=== PATIENT | female | born 1965 | race Caucasian/White ===

== ENCOUNTER 2019-03-13 00:47 | Emergency (ER) | payer OTHER ==
[2019-03-13 00:56] VITALS: BP 122/96
[2019-03-13] MEDS ORDERED: predniSONE TAB* 50 MG PO ONE (01:50)
[2019-03-13] MEDS ORDERED: Clindamycin CAP* 150 MG PO ONE (01:50)
[2019-03-13] MEDS ORDERED: predniSONE TAB* 10 MG ONE (01:55)
[2019-03-13] MEDS ORDERED: hydrOXYzine HCL TAB* 25 MG PO ONE (01:58)
--- NOTE | 2019-03-13 02:39 | ED ---
Bite Injury/Animal - HPI Summary HPI Summary: This pt is a 53 Y/O female presenting to [facility] with a CC of a bite to her forehead from 03/11/19. She stated that her face started swelling up and has begun to become painful today. She stated that she has had pus come out of her ear yesterday. She denies any fever, CP, abdominal pain, N/V/D, headaches, and new rashes. She states that she has no alleviating factors. - History of Current Complaint Chief Complaint: EDFacialInjury Stated Complaint: RASH PER PT Time Seen by Provider: 03/13/19 01:39 Hx Obtained From: Patient Hx Last Menstrual Period: N/A Onset of Injury: Happened days ago - 2, Still Present Type of Bite: Wild Animal Has Animal Been Immunized?: N/A Severity Initially: Mild Severity Currently: None Pain Intensity: 0 Pain Scale Used: 0-10 Numeric Character: Puncture Aggravating Factor(s): Nothing Alleviating Factor(s): Nothing - pt stated that she had pus coming out of her ear Associated Signs And Symptoms: Positive: Negative - fever, CP, abdominal pain, N /V/D, headaches, and new rashes. She, Drainage - p, Swelling. Negative: Fever Animal Available for Observation: No - Allergies/Home Medications Allergies/Adverse Reactions: Allergies Allergy/AdvReac Type Severity Reaction Status Date / Time ibuprofen Allergy Rash Verified 03/13/19 01:03 meperidine Allergy Unknown Verified 03/13/19 01:03 Reaction Details Sulfa (Sulfonamide Allergy Rash And Verified 03/13/19 01:03 Antibiotics) Itching PMH/Surg Hx/FS Hx/Imm Hx Previously Healthy: Yes Endocrine/Hematology History: Denies: Hx Bone Marrow Disease, Hx Diabetes, Hx Sickle Cell Disease, Hx Thyroid Disease, Hx Anemia Cardiovascular History: Denies: Hx Angina, Hx Hypertension, Hx Pacemaker/ICD, Hx Rheumatic Fever, Other Cardiovascular Problems/Disorders Respiratory History: Reports: Other Respiratory Problems/Disorders Denies: Hx Asthma, Hx Pulmonary Embolism, Hx Sleep Apnea GI History: Denies: Hx Cirrhosis, Hx Crohn's Disease, Hx Irritable Bowel History: Denies: Hx Kidney Infection Musculoskeletal History: Reports: Hx Arthritis - HANDS, SPINE, KNEES, Hx Tendonitis - ELBOWS Sensory History: Denies: Hx Cataracts, Hx Contacts or Glasses, Hx Hearing Aid Opthamlomology History: Denies: Hx Cataracts, Hx Contacts or Glasses Neurological History: Denies: Hx Headaches, Hx Migraine, Hx Seizures Psychiatric History: Denies: Hx Anxiety, Hx Depression - Surgical History Surgery Procedure, Year, and Place: APPENDECTOMY OVER 10 YEARS AGO. T/A A CHILD. TUBAL LIGATION- 1988, [place]. RIGHT EAR RECONSTRUCTION- ABOUT 1YEAR AGO, AT "ENT OFFICE IN [place]" Hx Anesthesia Reactions: No - Immunization History Date of Tetanus Vaccine: unk Date of Influenza Vaccine: none Infectious Disease History: No Infectious Disease History: Denies: Hx Hepatitis, Traveled Outside the [place] in Last 30 Days - Social History Alcohol Use: Rare Alcohol Amount: 1 DRINK PER MONTH, DEPENDS ON THE OCCASION Substance Use Type: Reports: None Substance Use Comment - Amount & Last Used: DRUG HISTORY MANY YEARS AGO Hx Tobacco Use: Yes Smoking Status (MU): Heavy Every Day Tobacco Smoker Type: Cigarettes Amount Used/How Often: 1PPD, "ALL MY LIFE" Length of Time of Smoking/Using Tobacco: 30 YEARS Have You Smoked in the Last Year: Yes Review of Systems Negative: Fever ENT: Other - POSITIVE: pus draining from ears, swelling face Negative: Chest Pain Negative: Abdominal Pain, Vomiting, Diarrhea, Nausea Negative: Rash Negative: Headache All Other Systems Reviewed And Are Negative: Yes Physical Exam - Summary Physical Exam Summary: VITAL SIGNS: Reviewed. GENERAL: Patient is a well-developed and nourished female who is lying comfortable in the stretcher. Patient is not in any acute respiratory distress. HEAD AND FACE: No signs of trauma. No ecchymosis, hematomas or skull depressions. No sinus tenderness. EYES: PERRLA, EOMI x 2, No injected conjunctiva, no nystagmus. EARS: Hearing grossly intact. Ear canals and tympanic membranes are within normal limits. MOUTH: Oropharynx within normal limits. NECK: Supple, trachea is midline, no adenopathy, no JVD, no carotid bruit, no c- spine tenderness, neck with full ROM CHEST: Symmetric, no tenderness at palpation LUNGS: Clear to auscultation bilaterally. No wheezing or crackles. CVS: Regular rate and rhythm, S1 and S2 present, no murmurs or gallops appreciated. ABDOMEN: Soft, non-tender. No signs of distention. No rebound no guarding, and no masses palpated. Bowel sounds are normal. EXTREMITIES: FROM in all major joints, no edema, no cyanosis or clubbing. NEURO: Alert and oriented x 3. No acute neurological deficits. Speech is normal and follows commands. SKIN: Dry and warm, Mild swollen focal area over the R forehead. Triage Information Reviewed: Yes Vital Signs On Initial Exam: Initial Vitals Temp Pulse Resp BP Pulse Ox 98.9 F 100 16 122/96 97 03/13/19 00:50 03/13/19 00:50 03/13/19 00:50 03/13/19 00:50 03/13/19 00:50 Vital Signs Reviewed: Yes Diagnostics - Vital Signs Vital Signs Temp Pulse Resp BP Pulse Ox 03/13/19 00:50 98.9 F 100 16 122/96 97 - Laboratory Lab Statement: Any lab studies that have been ordered have been reviewed, and results considered in the medical decision making process. Bite Injury Course/Dx - Course Course Of Treatment: This pt is a 53 Y/O female presenting to [facility] with a CC of a bite to her forehead from 03/11/19. She stated that her face started swelling up and has begun to become painful today. She stated that she has had pus come out of her ear yesterday. Her PE found that she had Mild swollen focal area over the R forehead. Pt stated that she felt better after the adminstration of the following medications: Atarax Tab, Cleocin Cap, Deltasone Tab. She will be discharged with a Dx of an allergic reaction to a bug bite and cellulitis. - Diagnoses Provider Diagnosis: Allergic reaction, Cellulitis Discharge - Sign-Out/Discharge Documenting (check all that apply): Patient Departure - discharge Patient Received Moderate/Deep Sedation with Procedure: No - Discharge Plan Condition: Stable Disposition: HOME Prescriptions: Clindamycin Cap(NF) [Clindamycin Cap 300 mg Cap(NF)] 300 mg PO Q6H #30 cap hydrOXYzine HCL TAB* [Atarax 25 MG TAB*] 25 mg PO QID PRN #20 tab PRN Reason: Itching predniSONE TAB* [Deltasone TAB*] 50 mg PO DAILY #3 tab Patient Education Materials: Allergies (ED), Cellulitis (ED) Referrals: [facility] [Outside] - 2 Days Additional Instructions: Please follow up with [facility] in 2-3 days and return to the emergency department for any new or worsening symptoms. - Attestation Statements Document Initiated by Scribe: Yes Documenting Scribe: Lencho Mendoza Provider For Whom Scribe is Documenting (Include Credential): Rose Coronel MD Scribe Attestation: Lencho Bassett, scribed for Rose Coronel MD on 03/13/19 at 0243. Status of Scribe Document: Ready
== END 2019-03-13 02:50 | disposition home or self-care (01) ==
LOC: ED 00:47
DX: T63.481A Toxic effect of venom of other arthropod, accidental (unintentional), initial encounter (principal); Y92.9 Unspecified place or not applicable; L03.211 Cellulitis of face; Z88.6 Allergy status to analgesic agent; Z88.5 Allergy status to narcotic agent; Z88.2 Allergy status to sulfonamides; F17.210 Nicotine dependence, cigarettes, uncomplicated
CPT/HCPCS: 99283; A9270-GY; J7512

== ENCOUNTER 2019-07-30 10:36 | Emergency (ER) | payer OTHER ==
[2019-07-30 10:45] VITALS: BP 147/77
--- NOTE | 2019-07-30 10:53 | UC ---
Skin Complaint HPI - HPI Summary HPI Summary: 53 yo yasmeen fitzgerald, comes today with multiple concerns: --dry fissured skins on her fingers, which is a chronic problem every winter --fears that she has "microscopic" bugs --had a fall about a month ago went down 3 steps, hitting her buttocks, mid back and neck, with a "numb spot" in the middle of the right buttock for the past weeks. She has no difficuty moving, no loss of bowel or bladder function. --has callus formation on the left first toes which is related to early bunion formation. - History of Current Complaint Chief Complaint: UCSkin Time Seen by Provider: 07/30/19 10:44 Stated Complaint: INJURY TO FINGER Hx Obtained From: Patient Hx Last Menstrual Period: N/A Onset/Duration: Gradual Onset, Lasting Weeks Timing: Constant Pain Intensity: 8 Aggravating Factor(s): Touch Alleviating Factor(s): Nothing Associated Signs & Symptoms: Positive: Negative - Allergy/Home Medications Allergies/Adverse Reactions: Allergies Allergy/AdvReac Type Severity Reaction Status Date / Time ibuprofen Allergy Rash Verified 07/30/19 10:45 meperidine Allergy Unknown Verified 07/30/19 10:45 Reaction Details Sulfa (Sulfonamide Allergy Rash And Verified 07/30/19 10:45 Antibiotics) Itching PMH/Surg Hx/FS Hx/Imm Hx Previously Healthy: Yes - low weigt, heavy smoker - Surgical History Surgical History: Yes Surgery Procedure, Year, and Place: APPENDECTOMY OVER 10 YEARS AGO. T/A A CHILD. TUBAL LIGATION- 1988, [place]. RIGHT EAR RECONSTRUCTION- ABOUT 1YEAR AGO, AT "ENT OFFICE IN [place]" - Family History Known Family History: Positive: Other - father of cancer, unknown primary; mother of stroke - Social History Occupation: Employed Full-time Lives: With Family Alcohol Use: Rare Alcohol Amount: 1 DRINK PER MONTH, DEPENDS ON THE OCCASION Substance Use Type: None Substance Use Comment - Amount & Last Used: DRUG HISTORY MANY YEARS AGO Smoking Status (MU): Heavy Every Day Tobacco Smoker Type: Cigarettes Amount Used/How Often: 1PPD, "ALL MY LIFE" Length of Time of Smoking/Using Tobacco: 30 YEARS Have You Smoked in the Last Year: Yes Household Exposure Type: Cigarettes Review of Systems All Other Systems Reviewed And Are Negative: Yes Constitutional: Positive: Negative Skin: Positive: Other - dry fissured skin on fingers Eyes: Positive: Negative ENT: Positive: Negative Respiratory: Positive: Negative Cardiovascular: Positive: Negative Gastrointestinal: Positive: Negative Genitourinary: Positive: Negative Motor: Positive: Negative Neurovascular: Positive: Negative Musculoskeletal: Positive: Other: - pain in low back and sacral area. Neurological: Positive: Paresthesia Psychological: Positive: Anxious Is Patient Immunocompromised?: No Physical Exam Triage Information Reviewed: Yes Appearance: No Pain Distress, Thin - Thin woman, anxious about potential bug bites. Vital Signs: Initial Vital Signs Temp 98 F 07/30/19 10:42 Pulse 91 07/30/19 10:42 Resp 17 07/30/19 10:42 BP 147/77 07/30/19 10:42 Pulse Ox 100 07/30/19 10:42 ENT: Positive: Normal ENT inspection, Pharynx normal, TMs normal, Other - right ear canal with dry flakey skin external canal. Dental Exam: Other - edentulous, removed upper denture; no mucosal lesions. Neck: Positive: Supple, Nontender, No Lymphadenopathy Respiratory: Positive: Lungs clear, Normal breath sounds Cardiovascular: Positive: RRR, No Murmur Abdomen Description: Positive: Nontender, No Organomegaly, Soft Musculoskeletal Exam: Other - Diffuse TTP in lumbar paraspinals and over gluteal areas. Musculoskeletal: Positive: ROM Intact - at lumbar spine. Able to heel and toe walk., No Edema, Other: - SLR limited by tight hamstrings. Bunion formation left foot. Neurological: Positive: Alert, Muscle Tone Normal, Other: - DTR's normal, normal resisted strength in LE Skin Exam: Other - very dry fissured skin tips of fingers without erythema or drainage. Skin: Positive: Other - has some crusted areas left anterior thigh Course/Dx - Course Course Of Treatment: Discussed need for increased lubrication of the fingers and role of steroid to help to heal this. Disussed that there is no evidence of body parasites. She does not have evidence of lice or scabies (skin checked) - Differential Diagnoses - Skin Complaint Differential Diagnoses: Eczema - Diagnoses Provider Diagnosis: Eczema of both hands, Back ache Discharge ED - Sign-Out/Discharge Documenting (check all that apply): Patient Departure All imaging exams completed and their final reports reviewed: No Studies - Discharge Plan Condition: Stable Disposition: HOME Prescriptions: Triamcinolone 0.5% CREAM(NF) [Triamcinolone 0.5% CREAM*] 1 applic TOPICAL BID PRN #60 gm PRN Reason: Dry Skin Patient Education Materials: Dyshidrotic Eczema (ED), Back Pain (ED), Lower Back Exercises (ED) Referrals: No Primary Care Phys,NOPCP [Primary Care Provider] - Additional Instructions: There is no evidence of body parasites or infection. You have very dry skin which leads to the itching. It is important that you stop picking at your skin. You have a steroid cream to use on your hands, but it is also important to keep moisturizing them. Good options include Cetaphil, Neutrogena, or a line of prodcuts called Psorzema. Follow up with your primary care doctor if you have a continue numb spot on the right buttock. You do not have findings that suggest a fracture or disk herniation. If the bunion becomes more painful, follow up with your primary. You have a referral to our Physician service if you would like to find a primary doctor closer to where you live. Your blood pressure ie elevated today to 147/77. Please have a re-check of your blood pressure within a month. - Billing Disposition and Condition Condition: STABLE Disposition: Home
== END 2019-07-30 11:56 | disposition home or self-care (01) ==
LOC: UCEAST 10:36
DX: L30.9 Dermatitis, unspecified (principal); M54.9 Dorsalgia, unspecified; Z88.8 Allergy status to other drugs, medicaments and biological substances; F17.210 Nicotine dependence, cigarettes, uncomplicated; Z88.5 Allergy status to narcotic agent; Z88.2 Allergy status to sulfonamides
CPT/HCPCS: 99212; G0463

== ENCOUNTER 2019-08-26 19:09 | Inpatient (IN) | payer OTHER ==
[2019-08-26] MEDS ORDERED: ceFAZolin 1 GM ADVAN(*) 1 GM in NS 0.9% 50 ML* 50 ML IVPB ONE (20:58)
[2019-08-26] MEDS ORDERED: Vancomycin(*) 1,000 MG in NS 0.9% 250 ML* 250 ML IV ONE (20:59)
[2019-08-26] MEDS ORDERED: Morphine 4 MG/ML VIAL (1 ml) 4 MG/ML VIAL IV ONE (21:01)
--- NOTE | 2019-08-26 21:02 | ED ---
Upper Extremity Pain - HPI Summary HPI Summary: The patient is a 53 y/o female presenting to [facility] accompanied by with a chief complaint of worsening swelling, pain, and warmth to the dorsal right hand extending into the fingers, wrist, and forearm over the last 8 hours. She reports that she is unsure how the hand was injured, but her states she sleep walks and may have fallen on it. She endorses a fever without any treatment [employer]. Pain is currently rated 10/10 in severity. Movement aggravates the pain as there is decreased ROM in the hand secondary to pain. PMHx: arthritis. Current smoker, rare EtOH, history of substance use without current use. Medications reviewed. Allergies noted. - History of Current Complaint Chief Complaint: EDExtremityUpper Stated Complaint: SWOLLEN R HAND AND FEVER PER PT Time Seen by Provider: 08/26/19 20:54 Hx Obtained From: Patient Hx Last Menstrual Period: N/A Mechanism Of Injury: Unknown Onset/Duration: Started Hours Ago, Still Present Timing: Constant Severity Initially: Mild Severity Currently: Severe Pain Location: Forearm - right, Wrist - right, Hand - right, Finger - right Character: Throbbing Aggravating Factor(s): Movement Alleviating Factor(s): Nothing Associated Signs & Symptoms: Positive: Swelling, Redness, Fever, Other - warmth to the right hand - Allergies/Home Medications Allergies/Adverse Reactions: Allergies Allergy/AdvReac Type Severity Reaction Status Date / Time ibuprofen Allergy Rash Verified 08/26/19 19:13 meperidine Allergy Unknown Verified 08/26/19 19:13 Reaction Details Sulfa (Sulfonamide Allergy Rash And Verified 08/26/19 19:13 Antibiotics) Itching PMH/Surg Hx/FS Hx/Imm Hx Endocrine/Hematology History: Denies: Hx Bone Marrow Disease, Hx Diabetes, Hx Sickle Cell Disease, Hx Thyroid Disease, Hx Anemia Cardiovascular History: Denies: Hx Angina, Hx Hypertension, Hx Pacemaker/ICD, Hx Rheumatic Fever, Other Cardiovascular Problems/Disorders Respiratory History: Reports: Other Respiratory Problems/Disorders Denies: Hx Asthma, Hx Pulmonary Embolism, Hx Sleep Apnea GI History: Denies: Hx Cirrhosis, Hx Crohn's Disease, Hx Irritable Bowel History: Denies: Hx Kidney Infection Musculoskeletal History: Reports: Hx Arthritis - HANDS, SPINE, KNEES, Hx Tendonitis - ELBOWS Sensory History: Denies: Hx Cataracts, Hx Contacts or Glasses, Hx Hearing Aid Opthamlomology History: Denies: Hx Cataracts, Hx Contacts or Glasses Neurological History: Denies: Hx Headaches, Hx Migraine, Hx Seizures Psychiatric History: Denies: Hx Anxiety, Hx Depression - Surgical History Surgical History: Yes Surgery Procedure, Year, and Place: APPENDECTOMY OVER 10 YEARS AGO. T/A A CHILD. TUBAL LIGATION- 1988, [place]. RIGHT EAR RECONSTRUCTION- ABOUT 1YEAR AGO, AT "ENT OFFICE IN [place]" Hx Anesthesia Reactions: No - Immunization History Date of Tetanus Vaccine: unk Date of Influenza Vaccine: none Infectious Disease History: Yes Infectious Disease History: Denies: Hx Hepatitis, Traveled Outside the in Last 30 Days - Family History Known Family History: Positive: Other - father of cancer, unknown primary; mother of stroke - Social History Alcohol Use: Rare Alcohol Amount: 1 DRINK PER MONTH, DEPENDS ON THE OCCASION Hx Substance Use: Yes Substance Use Type: Reports: None Substance Use Comment - Amount & Last Used: DRUG HISTORY MANY YEARS AGO Hx Tobacco Use: Yes Smoking Status (MU): Heavy Every Day Tobacco Smoker Type: Cigarettes Amount Used/How Often: 1PPD, "ALL MY LIFE" Length of Time of Smoking/Using Tobacco: 30 YEARS Have You Smoked in the Last Year: Yes Review of Systems Positive: Fever Positive: Decreased ROM - right hand secondary to pain, Other - pain in right hand and wrist Positive: Other - warmth, erythema, and swelling of right hand, fingers, and wrist into forearm All Other Systems Reviewed And Are Negative: Yes Physical Exam - Summary Physical Exam Summary: Appearance: Nontoxic-appearing female, Well-nourished, lying in bed comfortable , noted to be febrile Skin: Warm, dry, no obvious rash Eyes: sclera anicteric, no conjunctival pallor ENT: mucous membranes moist Neck: deferred Respiratory: No signs of respiratory distress Cardiovascular: Appears well perfused, pulses are nml Abdomen: deferred Musculoskeletal: Extensive swelling, redness, and warmth to the dorsum of the right hand extending into the fingers across the wrist and into the forearm, No obvious fluctuance or drainage, No discrete wound, Patient unable to flex fingers due to pain Neurological: Awake and alert, mentation is normal, speech is fluent and appropriate Psychiatric: affect is normal, does not appear anxious or depressed Triage Information Reviewed: Yes Vital Signs On Initial Exam: Initial Vitals Temp Pulse Resp BP Pulse Ox 101.2 F 92 15 167/92 98 08/26/19 19:11 08/26/19 19:11 08/26/19 19:11 08/26/19 19:11 08/26/19 19:11 Vital Signs Reviewed: Yes Procedures - Sedation Patient Received Moderate/Deep Sedation with Procedure: No Diagnostics - Vital Signs Vital Signs Temp Pulse Resp BP Pulse Ox 08/26/19 19:11 101.2 F 92 15 167/92 98 - Laboratory Result Diagrams: 08/26/19 21:45 08/26/19 21:45 Lab Statement: Any lab studies that have been ordered have been reviewed, and results considered in the medical decision making process. - Radiology R Hand XR Radiology Interpretation Completed By: ED Physician Summary of Radiographic Findings: Soft tissue swelling of the dorsum of the hand. No acute process with no subcutaneous air. ED physician has reviewed and interpreted this report. Pending official read. Course/Dx - Course Course Of Treatment: 53 y/o female presenting with pain, swelling, warmth, and erythema to the right hand extending into the fingers, wrist, and forearm onset approximately eight hours ago with unknown mechanism of injury. Physical exam reveals nontoxic appearing female who is noted to be febrile with extensive swelling, redness, and warmth to the dorsum of the right hand extending into the fingers across the wrist and into the forearm without any obvious fluctuance , drainage, or discrete wound, but with inability to flex fingers secondary to pain. Blood work obtained to reveal WBCs of 12.7, absolute neutrophils of 10.1, absolute monocytes of 1.0, sodium of 132, potassium of 3.2, and chloride of 98. Dr. Zapien from orthopedics agrees with IV antibiotics and admission as he will see her in the morning. In the ED course, the patient was administered fluids, Morphine for pain, and Cefazolin and Vancomycin for infection. Right hand XR, per my interpretation, reveals soft tissue swelling of the dorsum of the hand, no acute process with no subcutaneous air. Dr. Mack from hospitalist services accepts the patient for admission. Patient understands and agrees with this plan. - Diagnoses Provider Diagnoses: Cellulitis of right hand - Physician Notifications Discussed Care of Patient With: Tavo Zapien - orthopedics Time Discussed With Above Provider: 21:30 Instructed by Provider To: Other - I discussed the patients case with Dr. Zapien, who agrees with IV antibiotics and admission as he will see her in the morning. [2330] I discussed the patients case with Dr. Mack, who accepts the patient for admission. Discharge ED - Sign-Out/Discharge Documenting (check all that apply): Patient Departure - Patient accepted for admission by Dr. Mack. - Discharge Plan Condition: Stable Disposition: ADMITTED TO [facility] - Billing Disposition and Condition Condition: STABLE Disposition: Admitted to [facility] - Attestation Statements Document Initiated by Aidan: Yes Documenting Scribe: Lavonne Wakefield Provider For Whom Aidan is Documenting (Include Credential): Dr. Hernan Hernandez MD Scribe Attestation: ILavonne scribed for Dr. Hernan Hernandez MD on 08/27/19 at 0142. Scribe Documentation Reviewed: Yes Provider Attestation: The documentation as recorded by the Lavonne mederos accurately reflects the service I personally performed and the decisions made by me, Dr. Hernan Hernandez MD Status of Scribe Document: Viewed
[2019-08-26] MEDS: NS 0.9% 1000 ML** 2,000 ML IV ONE ×3 (21:51→22:36)
[2019-08-26 22:02] LABS: ABS Lymphocytes 1.5 10^3/ul (1.0-4.8); ABS Neutrophils 10.1 10^3/ul (1.5-7.7); Eosinophil % 0.1 %; Hematocrit 36 % (35-47); Hemoglobin 12.2 g/dL (12.0-16.0); Lymphocyte % 11.6 %; Mean Corpuscular HGB Conc 34 g/dL (31-36); Mean Corpuscular Hemoglobin 31 pg (27-31); Mean Corpuscular Volume 92 fL (80-97); Mean Platelet Volume 7.8 fL (7.4-10.4); Platelet Count 250 10^3/uL (150-450); Red Blood Count 3.91 10^6 /uL (3.70-4.87); Red Cell Distribution Width 13 % (10-15); White Blood Count 12.7 10^3/uL (3.5-10.8)
[2019-08-26 22:15] LABS: Albumin 3.9 g/dL (3.2-5.2); Albumin/Globulin Ratio 1.3 (1-3); BUN/Creatinine Ratio 26.2 (8-20); EGFR African American 124.6 (>60); Globulin 3.1 g/dL (2-4); Potassium 3.2 mmol/L (3.5-5.0); Total Bilirubin 0.7 mg/dL (0.2-1.0)
[2019-08-26 23:13] LABS: Urine Appearance Clear; Urine Bilirubin Negative (Negative); Urine Blood 1+ (Negative); Urine Color Yellow; Urine Glucose Negative (Negative); Urine Ketones Negative (Negative); Urine Nitrite Negative (Negative); Urine Protein Negative (Negative); Urine Specific Gravity 1.008 (1.010-1.030); Urine Urobilinogen Negative (Negative)
[2019-08-26 23:14] LABS: Urine Bacteria Absent (Absent); Urine Red Blood Cell Trace(0-2/hpf) (Absent); Urine Squamous Epithelial Cell Present (Absent); Urine White Blood Cell Trace(0-5/hpf) (Absent)
[2019-08-26] MEDS ORDERED: oxyCODONE/Acetamin 5/325 MG* TAB PO PRN (23:43)
[2019-08-26] MEDS ORDERED: NS 0.9% 1000 ML** 1,000 ML IV SCH (23:45)
[2019-08-26] MEDS ORDERED: Ondansetron INJ* 2 MG/ML VIAL IV PRN (23:45)
[2019-08-26] MEDS ORDERED: Ketorolac INJ* 30 MG/ML 1 ML VIAL ONE (23:48)
[2019-08-26] MEDS ORDERED: Ketorolac INJ* 30 MG/ML 1 ML VIAL IV PUSH ONE (23:50)
[2019-08-26] MEDS ORDERED: Potassium Chloride* LIQUID 20 MEQ/15 ML UDC PO ONE (23:54)
[2019-08-26] MEDS ORDERED: Albuterol HFA INHALER* 8 gm MDI INH PRN (23:54)
[2019-08-27] MEDS: Acetaminophen TAB* 325 MG PO SCH ×4 (00:49→18:07)
[2019-08-27] MEDS: Enoxaparin(*) 40 MG/0.4 ML SYR SUBCUT SCH ×2 (00:49→21:22)
--- NOTE | 2019-08-27 03:09 | HP ---
HISTORY AND PHYSICAL: DATE OF ADMISSION: 08/26/19 PRIMARY CARE PROVIDER: Yesenia Campbell MD SKILLS TRAINER: Cheryl Thomas, the patient's sister. CODE STATUS: Full. SOURCE OF INFORMATION: HPI is obtained from the patient. She is a fair historian. CHIEF COMPLAINT: Right hand pain. HISTORY OF PRESENT ILLNESS: This is a 53-year-old female with a past medical history of tobacco use, low BMI, polysubstance abuse in remission who has presented tonight with complaint of right hand pain starting approximately 24 hours ago with associated swelling, warmth. She has a distant history of polysubstance abuse in remission for 20 years. 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 She has tried ice packs and Tylenol at home with no help and starting today, her pain increased and swelling increased to the point where she was unable to flex or extend her digits and thus she decided to present to the emergency room. She does not report a clear mechanism of injury. She denies IV drug use. She denies any recent soft tissue injuries or trauma other than above. She did have some associated shaking chills, but no other chest pain, shortness of breath, GI or symptoms. EMERGENCY ROOM COURSE: Temperature was 101.2 on arrival, heart rate 92, respiratory rate 15, 98% on room air with blood pressure of 167/92. Labs were performed, which show leukocytosis. Sodium at 132, potassium at 3.2. Lactate was flat. UA showed 1+ blood, otherwise unremarkable. Blood cultures were drawn. Cefazolin, vancomycin, morphine, and 2 L of IV fluids were given. Ortho was made aware, who requested radiographs and that they would evaluate the patient tomorrow. Results of radiograph show no apparent fracture. PAST MEDICAL HISTORY: Current tobacco use, 1 pack per day for 30 years, low BMI , distant history of polysubstance abuse including IV drug use with cessation greater than 20 years ago, mild anxiety. PAST SURGICAL HISTORY: Status post appendectomy, status post tubal ligation. MEDICATIONS: Positive for triamcinolone cream only. She takes no other medications. ALLERGIES: IBUPROFEN, noted itching; MEPERIDINE, SULFA. FAMILY HISTORY: Father is from primary unknown cancer and mother is from CVA. SOCIAL HISTORY: The patient lives with her . She has tobacco use of currently 1 pack per day for a total of 30 years. Alcohol, she reports 1 drink per month. She has a distant history of polysubstance abuse including IV drug abuse greater than 20 years ago with complete recovery during this time. REVIEW OF SYSTEMS: Constitutional: Positive for subjective fevers. Negative for chills or malaise. HEENT: Negative for headaches, vision changes or sore throat. Cardiovascular: Negative for chest pain, palpitations or orthopnea. Respiratory: Negative for shortness of breath, cough or pleuritic chest pain. GI: Negative for nausea, vomiting, diarrhea or abdominal pain. : Negative for dysuria or hematuria. Musculoskeletal: Positive for right hand pain, weakness, and inability to extend or flex fingers. No other acute musculoskeletal or myalgias are reported. Skin: Positive for warmth and redness to right hand, otherwise no new rashes or lesions. Neurologic: Negative for numbness. Psychiatric: Negative for depression. Positive for anxiety. Endocrine: Negative for polyuria or polydipsia. Heme: Negative for easy bruising, bleeding or lymphadenopathy. PHYSICAL EXAMINATION GENERAL APPEARANCE: Thin, chronically ill-appearing woman, in no acute distress. Appears in pain when moving hand. A and O x3, and cooperative. VITAL SIGNS: At the time of physical exam, temperature 99.3, pulse rate 84, respiratory rate 18, oxygen saturation 90% on room air, blood pressure is 151/ 87. HEENT: Pupils are equal and reactive. Extraocular muscles are intact. Oropharynx has dry mucous membranes. NECK: Supple with no supraclavicular or cervical lymphadenopathy. PULMONARY: Her lungs are distant with expiratory wheezes. No increased workup breathing. No focal areas of consolidation. CARDIAC: She has regular rate and rhythm. No murmurs, rubs or gallops. Belly is soft, nontender, and nondistended with normoactive bowel sounds. SKIN: Overlying anterior dorsum of hand shows diffuse erythema without fluctuance and a 1cm area of raised bright red induration or area without purulent discharge, erythema extends to wrist, palm of hand is dirty with diffuse skin thickening and cracks between digits MUSCULOSKELETAL: She moves all 4 limbs spontaneously. Right hand as per above. Right hand dorsum to wrist is with significant swelling, erythema, and warmth. She is unable to flex or extend fingers of right hand passively. She has numerous rings that do not appear that can easily move and slide. Her sensation is intact in her right dorsum and she has palpable pulses in all 4 extremities. NEURO: Her cranial nerves are intact. She no focal neurologic deficits. Sensation is intact. PSYCHIATRIC: The patient is anxious and tearful. DIAGNOSTIC STUDIES/LAB DATA: Labs: Leukocytosis 12.7, hemoglobin 12.2, hematocrit 36, platelets of 250. Sodium 132, potassium 3.2, chloride 98, carbon dioxide 26, anion gap 8, BUN 16, creatinine 0.61. Glucose 103. Lactic acid 0.9. AST 16, ALT 19, alk phos 94. UA is 1+ blood. Otherwise unremarkable. Hand x-ray is pending at the time of this dictation though no obvious fracture on wet read. ASSESSMENT AND PLAN: A 53-year-old female with a past medical history of distant polysubstance abuse, ongoing tobacco use, low body mass index, who is presenting with one day of right hand pain and evidence of skin and soft tissue infection of dorsum of right hand along with possible infectious tenosynovitis with no clear mechanism of injury, also presented with sepsis meeting 2 SIRS criteria with source of skin and soft tissue infection. 1. Sepsis secondary to skin and soft tissue infection. She has received her fluid bolus. Her lactate is flat. No evidence of severe sepsis on follow cultures, and she has been covered broadly with vancomycin and ceftriaxone with cultures pending. 2. Skin and soft tissue infection with concerning underlying infectious tenosynovitis. Ortho has been contacted and will follow with the patient starting tomorrow. They did not recommend imaging aside from x-ray at this time. She may need MRI. Vancomycin and cefazolin were given in the emergency room and we will continue with vancomycin and ceftriaxone with holding anaerobic coverage at this time given no obvious risk factors. 3. Right hand pain. Pain control with morphine, Percocet, standing Tylenol and p.r.n. Toradol. 4. Tobacco use, offered nicotine replacement therapy. 5. Distant history of polysubstance abuse. The patient reports no evidence of current IV drug use leading to source of infection. We will add on hep-C for known history of intravenous drug use, although the patient is adamant that she is in full recovery. 6. Anxiety. The patient is significantly anxious during this hospitalization and can offer her low dose Ativan, not to be sent home with. 7. DVT prophylaxis. The patient was placed on Lovenox. 8. Code status is full. 9. Disposition. Stable to be admitted to the medical service for skin and soft tissue infection on with Orthopedics consulting. TIME SPENT: Forty five minutes were spent in the planning of this admission note, over half of that was spent directly at the bedside with the patient, providing direct patient care. Plan of care is discussed with the patient, who agrees with plan and has no further questions. [id number]/CPS #: [id number] MTDD
[2019-08-27] MEDS: cefTRIAXone(*) 1 GM in NS 0.9% 50 ML* 50 ML IVPB SCH (04:32)
[2019-08-27 05:37] LABS: ABS Lymphocytes 1.2 10^3/ul (1.0-4.8); ABS Monocytes 0.8 10^3/ul (0-0.8); ABS Neutrophils 7.7 10^3/ul (1.5-7.7); Eosinophil % 0.3 %; Hematocrit 33 % (35-47); Hemoglobin 11.3 g/dL (12.0-16.0); Lymphocyte % 12.4 %; Mean Corpuscular HGB Conc 34 g/dL (31-36); Mean Corpuscular Hemoglobin 32 pg (27-31); Mean Corpuscular Volume 92 fL (80-97); Mean Platelet Volume 7.7 fL (7.4-10.4); Nucleated Red Blood Cells % 0.1; Platelet Count 229 10^3/uL (150-450); Red Blood Count 3.59 10^6 /uL (3.70-4.87); Red Cell Distribution Width 13 % (10-15); White Blood Count 9.8 10^3/uL (3.5-10.8)
[2019-08-27 05:55] LABS: BUN/Creatinine Ratio 18.5 (8-20); Calcium 8.4 mg/dL (8.6-10.3); EGFR African American 143.5 (>60); EGFR Non-African American 118.6 (>60); Potassium 3.2 mmol/L (3.5-5.0)
[2019-08-27] MEDS ORDERED: Vancomycin per Pharmacy* NOTE FOLLOW UP PRN (06:46)
[2019-08-27 06:47] LABS: Hepatitis C Antibody Negative (Negative)
[2019-08-27] MEDS: Nicotine PATCH 21 MG/24 HR* PATCH TRANSDERM SCH (07:36)
[2019-08-27] MEDS: LORazepam TAB(*) 0.5 MG PO PRN (08:35)
[2019-08-27] MEDS: Vancomycin(*) 1,000 MG in NS 0.9% 250 ML* 250 ML IV SCH ×2 (09:47→21:22)
--- NOTE | 2019-08-27 11:54 | PN ---
Subjective Date of Service: 08/27/19 Interval History: Pt is feeling tired. She continues to have swelling of the R hand and there is swelling extending up the forearm. She can not extend her fingers. There is much less redness. Objective Active Medications: Acetaminophen (Tylenol Tab*) 650 mg PO Q6HR [facility] Last Admin: 08/27/19 04:32 Dose: Not Given Albuterol (Ventolin Hfa Inhaler*) 2 puff INH Q4H PRN PRN Reason: SOB/WHEEZING Enoxaparin Sodium (Lovenox(*)) 40 mg SUBCUT BEDTIME [facility] Last Admin: 08/27/19 00:49 Dose: 40 mg Sodium Chloride (Ns 0.9% 1000 Ml) 1,000 mls @ 125 mls/hr IV PER RATE [facility] Stop: 08/28/19 07:44 Ceftriaxone Sodium 1 gm/ (Sodium Chloride) 50 mls @ 100 mls/hr IVPB Q24H [facility] Last Admin: 08/27/19 04:32 Dose: 100 mls/hr Vancomycin HCl 1,000 mg/ (Sodium Chloride) 250 mls @ 166.667 mls/hr IV Q12H [facility] ; Protocol Last Admin: 08/27/19 09:47 Dose: 166.667 mls/hr Ketorolac Tromethamine (Toradol Inj*) 30 mg IV PUSH Q6H PRN PRN Reason: PAIN - MODERATE Stop: 09/01/19 23:39 Lorazepam (Ativan Tab(*)) 0.5 mg PO Q6H PRN PRN Reason: ANXIETY Last Admin: 08/27/19 08:35 Dose: 0.5 mg Morphine Sulfate (Morphine Inj (Syringe)*) 4 mg IV Q6H PRN PRN Reason: PAIN - SEVERE Nicotine (Nicotine Patch 21 Mg/24 Hr*) 1 patch TRANSDERM DAILY@0800 [facility] Last Admin: 08/27/19 07:36 Dose: 1 patch Nicotine Polacrilex (Nicotine Lozenge Mini) 2 mg MT Q2H PRN PRN Reason: CRAVING Ondansetron HCl (Zofran Inj*) 4 mg IV Q6H PRN PRN Reason: NAUSEA Oxycodone/Acetaminophen (Percocet 5/325 Tab*) 1 tab PO Q6H PRN PRN Reason: PAIN - MODERATE Last Admin: 08/27/19 07:37 Dose: 1 tab Pharmacy Consult (Vancomycin Per Pharmacy*) 1 note FOLLOW UP . PRN PRN Reason: PER PROTOCOL Pharmacy Profile Note (Nicotine Patch Removal Note*) 1 note FOLLOW UP 2099 [facility] Pharmacy Profile Note (Vancomycin Trough Check) 1 note FOLLOW UP 929 ONE Stop: 08/28/19 09:31 Vital Signs - 8 hr 08/27/19 08/27/19 08/27/19 07:15 07:37 08:00 Temperature 98.8 F Pulse Rate 81 Respiratory 30 30 28 Rate Blood Pressure 146/79 (mmHg) O2 Sat by Pulse 100 Oximetry 08/27/19 08/27/19 08/27/19 08:35 09:48 11:02 Temperature Pulse Rate Respiratory 24 20 16 Rate Blood Pressure (mmHg) O2 Sat by Pulse Oximetry 08/27/19 11:15 Temperature 98.4 F Pulse Rate 74 Respiratory 16 Rate Blood Pressure 122/79 (mmHg) O2 Sat by Pulse 100 Oximetry Oxygen Devices in Use Now: None Appearance: Middle aged female who appears older than her stated age, in NAD Eyes: No Scleral Icterus Ears/Nose/Mouth/Throat: Mucous Membranes Moist Respiratory: Symmetrical Chest Expansion and Respiratory Effort, Clear to Auscultation - anteriorly Cardiovascular: NL Sounds; No Murmurs; No JVD, RRR, - - no LE edema Abdominal: NL Sounds; No Tenderness; No Distention Extremities: No Clubbing, Cyanosis, - - decreased ROM of fingers/wrist on R Skin: - - minimal erythma in previously outlined area on R hand/wrist/forearm, still marked edema of R fingers/hand/forearm Neurological: - - sleepy Result Diagrams: 08/27/19 05:12 08/27/19 05:12 Assess/Plan/Problems-Billing Ms Martínez is a 53 yo F who has a h/o tobacco abuse who presented to the ER with c/ o R hand redness and swelling and was admitted for a R UE cellulitis possible tenosynovitis. - Patient Problems (1) Cellulitis of multiple sites of right hand and fingers Current Visit: Yes Status: Acute Code(s): L03.011 - CELLULITIS OF RIGHT FINGER; L03.113 - CELLULITIS OF RIGHT UPPER LIMB SNOMED Code(s): 55836808 Comment: Await orthopedics evaluation. Pt reports improvement in the edema but she is still quite swollen. Continue ceftriaxone and vancomycin. (2) Tobacco abuse Current Visit: Yes Status: Acute Code(s): Z72.0 - TOBACCO USE SNOMED Code( s): 641983474 Comment: Continue nicotine patch and prn lozenge. (3) DVT prophylaxis Current Visit: Yes Status: Acute Code(s): Z29.9 - ENCOUNTER FOR PROPHYLACTIC MEASURES, UNSPECIFIED SNOMED Code(s): 410440882 Comment: lovenox (4) Full code status Current Visit: Yes Status: Acute Code(s): Z78.9 - OTHER SPECIFIED HEALTH STATUS SNOMED Code(s): 877970878
--- NOTE | 2019-08-27 11:58 | PN ---
Progress Note - Progress Note Date of Service: 08/27/19 SOAP: Subjective: [The pt is a 53 y/o female who presents today with redness and swelling of the right hand. 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 She states that the house was a "dirty house and it could have been a bug bite that started all this. She states that her hand was red, swollen and painful to move. She states that she did have a fever last night. No chills or night sweats. No chest pain or SOB. ] Objective: [General: Pt is alert and oriented x3. NAD. MSK, RUE: Inspection of the hand reveals erythema over the dorsum of the hand extending to just below the PIP of all the digits and to just above the crease of the wrist. She christensen have markings presents form a skin marker to delineate the extent of the erythema upon arrival in the hospital and her erythema has receded from these markings. She is unable to make a fist or fully extend her fingers at this point due to pain. She does have full sensation intact to light touch and has a 2+ DP pulse. ] Vital Signs Temp 98.4 F 08/27/19 11:15 Pulse 74 08/27/19 11:15 Resp 16 08/27/19 11:15 BP 122/79 08/27/19 11:15 Pulse Ox 100 08/27/19 11:15 Intake & Output 08/26/19 08/27/19 08/27/19 18:59 06:59 18:59 Intake Total 1300 Output Total 450 Balance 850 Weight 146 lb Intake: IV Fluids 450 NS 450 IVPB 100 Medicated IV 100 Rocephin 100 Oral 650 Output: Urine 450 Other: Estimated Void Large # Bowel Movements 0 # Voids 1 Assessment: [Right hand cellulitis ] Plan: [Continue with ceftriaxone and vancomycin. We do not feel that this needs to be taken to the OR at this time, we will continue to monitor the erythema at this point. She can eat, regular diet placed ]
[2019-08-27] MEDS: Nicotine Lozenge* mini 2 MG LOZNG.MINI MT PRN ×2 (13:18→21:37)
[2019-08-27] MEDS: Morphine INJ* 4 MG/ML 1 ML SYRINGE (NEW SYRINGE VERSION) IV PRN ×2 (13:18→21:21)
[2019-08-27] MEDS: Ketorolac INJ* 30 MG/ML 1 ML VIAL IV PUSH PRN (18:07)
[2019-08-27] MEDS: Nicotine Patch Removal NOTE FOLLOW UP SCH (21:22)
[2019-08-28] MEDS: Acetaminophen TAB* 325 MG PO SCH ×4 (00:30→18:12)
[2019-08-28] MEDS: Ketorolac INJ* 30 MG/ML 1 ML VIAL IV PUSH PRN ×2 (05:06→22:45)
[2019-08-28] MEDS: cefTRIAXone(*) 1 GM in NS 0.9% 50 ML* 50 ML IVPB SCH (05:06)
[2019-08-28] MEDS: Nicotine PATCH 21 MG/24 HR* PATCH TRANSDERM SCH (07:55)
--- NOTE | 2019-08-28 08:12 | PN ---
Subjective Date of Service: 08/28/19 Interval History: R arm appears less red to pt and less swollen, but still has problems and pain with ROM of R wrist Objective Active Medications: Acetaminophen (Tylenol Tab*) 650 mg PO Q6HR [facility] Last Admin: 08/28/19 05:06 Dose: Not Given Albuterol (Ventolin Hfa Inhaler*) 2 puff INH Q4H PRN PRN Reason: SOB/WHEEZING Enoxaparin Sodium (Lovenox(*)) 40 mg SUBCUT BEDTIME [facility] Last Admin: 08/27/19 21:22 Dose: 40 mg Ceftriaxone Sodium 1 gm/ (Sodium Chloride) 50 mls @ 100 mls/hr IVPB Q24H [facility] Last Admin: 08/28/19 05:06 Dose: 100 mls/hr Vancomycin HCl 1,000 mg/ (Sodium Chloride) 250 mls @ 166.667 mls/hr IV Q12H [facility] ; Protocol Last Admin: 08/27/19 21:22 Dose: 166.667 mls/hr Ketorolac Tromethamine (Toradol Inj*) 30 mg IV PUSH Q6H PRN PRN Reason: PAIN - MODERATE Stop: 09/01/19 23:39 Last Admin: 08/28/19 05:06 Dose: 30 mg Lorazepam (Ativan Tab(*)) 0.5 mg PO Q6H PRN PRN Reason: ANXIETY Last Admin: 08/27/19 08:35 Dose: 0.5 mg Morphine Sulfate (Morphine Inj (Syringe)*) 4 mg IV Q6H PRN PRN Reason: PAIN - SEVERE Last Admin: 08/27/19 21:21 Dose: 4 mg Nicotine (Nicotine Patch 21 Mg/24 Hr*) 1 patch TRANSDERM DAILY@0800 [facility] Last Admin: 08/28/19 07:55 Dose: 1 patch Nicotine Polacrilex (Nicotine Lozenge Mini) 2 mg MT Q2H PRN PRN Reason: CRAVING Last Admin: 08/27/19 21:37 Dose: 2 mg Ondansetron HCl (Zofran Inj*) 4 mg IV Q6H PRN PRN Reason: NAUSEA Pharmacy Consult (Vancomycin Per Pharmacy*) 1 note FOLLOW UP . PRN PRN Reason: PER PROTOCOL Pharmacy Profile Note (Nicotine Patch Removal Note*) 1 note FOLLOW UP 2100 [facility] Last Admin: 08/27/19 21:22 Dose: 1 note Pharmacy Profile Note (Vancomycin Trough Check) 1 note FOLLOW UP 929 ONE Stop: 08/28/19 09:31 Vital Signs - 8 hr 08/28/19 03:15 Temperature 97.7 F Pulse Rate 85 Respiratory 19 Rate Blood Pressure 115/64 (mmHg) O2 Sat by Pulse 100 Oximetry Oxygen Devices in Use Now: None Appearance: 53 yo f in NAD, AAOx3 Eyes: No Scleral Icterus, PERRLA Ears/Nose/Mouth/Throat: NL Teeth, Lips, Gums, Mucous Membranes Moist Neck: NL Appearance and Movements; NL JVP, Trachea Midline Respiratory: Symmetrical Chest Expansion and Respiratory Effort, Clear to Auscultation Cardiovascular: NL Sounds; No Murmurs; No JVD, RRR Abdominal: NL Sounds; No Tenderness; No Distention Lymphatic: No Cervical Adenopathy Extremities: No Clubbing, Cyanosis, - - R wrist edema and cellulitis appear to be improving. r wrist with significant pain when trying flexion Skin: No Nodules or Sclerosis, - - R wrist/hand erythema improving Neurological: Alert and Oriented x 3, NL Muscle Strength and Tone Result Diagrams: 08/27/19 05:12 08/27/19 05:12 Microbiology and Other Data: Microbiology 08/26/19 23:01 Urine Culture - Final Urine No Growth (<1,000 CFU/mL) 08/26/19 23:05 Aerobic Blood Culture - Preliminary Blood Venous No Growth Day 1 Anaerobic Blood Culture - Preliminary No Growth Day 1 08/26/19 21:45 Aerobic Blood Culture - Preliminary Blood Venous No Growth Day 1 Anaerobic Blood Culture - Preliminary No Growth Day 1 Assess/Plan/Problems-Billing Ms Martínez is a 53 yo F who has a h/o tobacco abuse who presented to the ER with c/ o R hand redness and swelling and was admitted for a R UE cellulitis possible tenosynovitis. - Patient Problems (1) Cellulitis of multiple sites of right hand and fingers Comment: appreciate orthopedics evaluation. Pt reports improvement in the edema but she is still quite paifull when attempting to flex wrist. Continue ceftriaxone and vancomycin. (2) Tobacco abuse Comment: Continue nicotine patch and prn lozenge. (3) DVT prophylaxis Comment: lovenox Status and Disposition: inpatient
[2019-08-28] MEDS ORDERED: Vancomycin Trough Check NOTE FOLLOW UP ONE (09:30)
[2019-08-28] MEDS: Morphine INJ* 4 MG/ML 1 ML SYRINGE (NEW SYRINGE VERSION) IV PRN ×2 (11:29→18:13)
--- NOTE | 2019-08-28 11:35 | PN ---
Progress Note - Progress Note Date of Service: 08/28/19 SOAP: Subjective: []Pt seen and examined at bedside. She reports continued and unchanged right hand pain, though feels the redness and swelling area receding. Denies fever or chills. Objective: [][General: NAD, nontoxic appearing MSK, RUE: Mild erythema over the dorsum of the hand over carpals to PIP of all digits without streaking, this has lessened in severity from yesterday and has recede from demarcated lines. Finger extension has improved, nearly full extension. Still limited flexion though improving. Wrist ROM 20 degrees arc motion without pain beyond which is limited by pain. She does have full sensation intact to light touch and radial pulse 2+, capillary refill less than two seconds distally. ] Assessment: [Right hand cellulitis Plan: [Continue with ceftriaxone and vancomycin. Dr Zapien evaluate yesterday, improved today. Rec IV abx until further improvement of exam Vital Signs Temp 97.9 F 08/28/19 07:15 Pulse 84 08/28/19 07:15 Resp 20 08/28/19 11:29 BP 108/64 08/28/19 07:15 Pulse Ox 100 08/28/19 07:15 Intake & Output 08/27/19 08/28/19 08/28/19 18:59 06:59 18:59 Intake Total 2290 1890 Balance 2290 1890 Intake: IV Fluids 1200 1600 ABX - VANCOMYCIN 500 NS 1200 1100 IVPB 250 ABX - VANCOMYCIN 250 Medicated IV 50 Rocephin 50 Oral 840 240 Other: Estimated Void Medium # Bowel Movements 0 # Voids 0 Laboratory Last Values WBC 9.8 10^3/uL (3.5-10.8) 08/27/19 05:12 RBC 3.59 10^6 /uL (3.70-4.87) L 08/27/19 05:12 Hgb 11.3 g/dL (12.0-16.0) L 08/27/19 05:12 Hct 33 % (35-47) L 08/27/19 05:12 MCV 92 fL (80-97) 08/27/19 05:12 MCH 32 pg (27-31) H 08/27/19 05:12 MCHC 34 g/dL (31-36) 08/27/19 05:12 RDW 13 % (10-15) 08/27/19 05:12 Plt Count 229 10^3/uL (150-450) 08/27/19 05:12 MPV 7.7 fL (7.4-10.4) 08/27/19 05:12 Neut % (Auto) 79.0 % 08/27/19 05:12 Lymph % (Auto) 12.4 % 08/27/19 05:12 Rush % (Auto) 8.1 % 08/27/19 05:12 Eos % (Auto) 0.3 % 08/27/19 05:12 Baso % (Auto) 0.2 % 08/27/19 05:12 Absolute Neuts (auto) 7.7 10^3/ul (1.5-7.7) 08/27/19 05:12 Absolute Lymphs (auto) 1.2 10^3/ul (1.0-4.8) 08/27/19 05:12 Absolute Monos (auto) 0.8 10^3/ul (0-0.8) 08/27/19 05:12 Absolute Eos (auto) 0.0 10^3/ul (0-0.6) 08/27/19 05:12 Absolute Basos (auto) 0.0 10^3/ul (0-0.2) 08/27/19 05:12 Absolute Nucleated RBC 0.0 10^3/ul 08/27/19 05:12 Nucleated RBC % 0.1 08/27/19 05:12 Sodium 138 mmol/L (135-145) 08/27/19 05:12 Potassium 3.2 mmol/L (3.5-5.0) L 08/27/19 05:12 Chloride 107 mmol/L (101-111) 08/27/19 05:12 Carbon Dioxide 24 mmol/L (22-32) 08/27/19 05:12 Anion Gap 7 mmol/L (2-11) 08/27/19 05:12 BUN 10 mg/dL (6-24) 08/27/19 05:12 Creatinine 0.54 mg/dL (0.51-0.95) 08/27/19 05:12 Est GFR ( Amer) 143.5 (>60) 08/27/19 05:12 Est GFR (Non-Af Amer) 118.6 (>60) 08/27/19 05:12 BUN/Creatinine Ratio 18.5 (8-20) 08/27/19 05:12 Glucose 99 mg/dL (70-100) 08/27/19 05:12 Lactic Acid 0.9 mmol/L (0.5-2.0) 08/26/19 21:45 Calcium 8.4 mg/dL (8.6-10.3) L 08/27/19 05:12 Total Bilirubin 0.70 mg/dL (0.2-1.0) 08/26/19 21:45 AST 16 U/L (13-39) 08/26/19 21:45 ALT 19 U/L (7-52) 08/26/19 21:45 Alkaline Phosphatase 94 U/L (34-104) 08/26/19 21:45 Total Protein 7.0 g/dL (6.4-8.9) 08/26/19 21:45 Albumin 3.9 g/dL (3.2-5.2) 08/26/19 21:45 Globulin 3.1 g/dL (2-4) 08/26/19 21:45 Albumin/Globulin Ratio 1.3 (1-3) 08/26/19 21:45 Urine Color Yellow 08/26/19 23:01 Urine Appearance Clear 08/26/19 23:01 Urine pH 5.0 (5-9) 08/26/19 23:01 Ur Specific Wilcox 1.008 (1.010-1.030) L 08/26/19 23:01 Urine Protein Negative (Negative) 08/26/19 23:01 Urine Ketones Negative (Negative) 08/26/19 23:01 Urine Blood 1+ (Negative) A 08/26/19 23:01 Urine Nitrate Negative (Negative) 08/26/19 23:01 Urine Bilirubin Negative (Negative) 08/26/19 23:01 Urine Urobilinogen Negative (Negative) 08/26/19 23:01 Ur Leukocyte Esterase Negative (Negative) 08/26/19 23:01 Urine WBC (Auto) Trace(0-5/hpf) (Absent) 08/26/19 23:01 Urine RBC (Auto) Trace(0-2/hpf) (Absent) 08/26/19 23:01 Ur Squamous Epith Cells Present (Absent) A 08/26/19 23:01 Urine Bacteria Absent (Absent) 08/26/19 23:01 Urine Glucose Negative (Negative) 08/26/19 23:01 Hepatitis C Antibody Negative (Negative) 08/27/19 05:12 Hepatitis C Ab Index 0.03 s/c 08/27/19 05:12
[2019-08-28 13:19] LABS: C Reactive Protein 100.27 mg/L (<8.01); EGFR African American 132.1 (>60); EGFR Non-African American 109.2 (>60)
[2019-08-28 13:20] LABS: Vancomycin Trough 3.5 mcg/mL
[2019-08-28] MEDS: Vancomycin(*) 1,000 MG in NS 0.9% 250 ML* 250 ML IV SCH ×2 (13:41→22:33)
[2019-08-28] MEDS: Enoxaparin(*) 40 MG/0.4 ML SYR SUBCUT SCH (22:36)
[2019-08-28] MEDS: Nicotine Patch Removal NOTE FOLLOW UP SCH (22:38)
[2019-08-28] MEDS: LORazepam TAB(*) 0.5 MG PO PRN (22:45)
[2019-08-29] MEDS: Morphine INJ* 4 MG/ML 1 ML SYRINGE (NEW SYRINGE VERSION) IV PRN ×2 (00:36→20:39)
[2019-08-29] MEDS: Acetaminophen TAB* 325 MG PO SCH ×6 (00:41→23:21)
[2019-08-29] MEDS: Ketorolac INJ* 30 MG/ML 1 ML VIAL IV PUSH PRN ×2 (04:58→23:20)
[2019-08-29] MEDS: cefTRIAXone(*) 1 GM in NS 0.9% 50 ML* 50 ML IVPB SCH (04:58)
[2019-08-29] MEDS: Vancomycin(*) 1,000 MG in NS 0.9% 250 ML* 250 ML IV SCH ×3 (06:00→22:09)
[2019-08-29] MEDS: Nicotine PATCH 21 MG/24 HR* PATCH TRANSDERM SCH (08:13)
--- NOTE | 2019-08-29 10:17 | PN ---
Subjective Date of Service: 08/29/19 Interval History: Pt c/o edema of the entire r forearm which is new. skin erythema is improving. Pain only with movement and still has decreased ROM or wrist Objective Active Medications: Acetaminophen (Tylenol Tab*) 650 mg PO Q6HR [facility] Last Admin: 08/29/19 06:00 Dose: 650 mg Albuterol (Ventolin Hfa Inhaler*) 2 puff INH Q4H PRN PRN Reason: SOB/WHEEZING Enoxaparin Sodium (Lovenox(*)) 40 mg SUBCUT BEDTIME [facility] Last Admin: 08/28/19 22:36 Dose: 40 mg Ceftriaxone Sodium 1 gm/ (Sodium Chloride) 50 mls @ 100 mls/hr IVPB Q24H [facility] Last Admin: 08/29/19 04:58 Dose: 100 mls/hr Vancomycin HCl 1,000 mg/ (Sodium Chloride) 250 mls @ 166.667 mls/hr IV Q8H [facility] Last Admin: 08/29/19 06:00 Dose: 166.667 mls/hr Ketorolac Tromethamine (Toradol Inj*) 30 mg IV PUSH Q6H PRN PRN Reason: PAIN - MODERATE Stop: 09/01/19 23:39 Last Admin: 08/29/19 04:58 Dose: 30 mg Lorazepam (Ativan Tab(*)) 0.5 mg PO Q6H PRN PRN Reason: ANXIETY Last Admin: 08/28/19 22:45 Dose: 0.5 mg Morphine Sulfate (Morphine Inj (Syringe)*) 4 mg IV Q6H PRN PRN Reason: PAIN - SEVERE Last Admin: 08/29/19 00:36 Dose: 4 mg Nicotine (Nicotine Patch 21 Mg/24 Hr*) 1 patch TRANSDERM DAILY@0800 [facility] Last Admin: 08/29/19 08:13 Dose: 1 patch Nicotine Polacrilex (Nicotine Lozenge Mini) 2 mg MT Q2H PRN PRN Reason: CRAVING Last Admin: 08/27/19 21:37 Dose: 2 mg Ondansetron HCl (Zofran Inj*) 4 mg IV Q6H PRN PRN Reason: NAUSEA Pharmacy Consult (Vancomycin Per Pharmacy*) 1 note FOLLOW UP . PRN PRN Reason: PER PROTOCOL Pharmacy Profile Note (Nicotine Patch Removal Note*) 1 note FOLLOW UP 2100 [facility] Last Admin: 08/28/19 22:38 Dose: Not Given Pharmacy Profile Note (Vancomycin Trough Check) 1 note FOLLOW UP 0530 ONE Stop: 08/30/19 05:31 Vital Signs - 8 hr 08/29/19 08/29/19 07:15 07:37 Temperature 97.9 F Pulse Rate 65 Respiratory 16 16 Rate Blood Pressure 108/63 (mmHg) O2 Sat by Pulse 95 Oximetry Oxygen Devices in Use Now: None Appearance: 53 yo f in nAD, aAOx3 Eyes: No Scleral Icterus, PERRLA Ears/Nose/Mouth/Throat: NL Teeth, Lips, Gums, Mucous Membranes Moist Neck: NL Appearance and Movements; NL JVP, Trachea Midline Respiratory: Symmetrical Chest Expansion and Respiratory Effort, - - R mid lung rhonchi that clear with cough Cardiovascular: NL Sounds; No Murmurs; No JVD, RRR Abdominal: NL Sounds; No Tenderness; No Distention, No Hepatosplenomegaly Lymphatic: No Cervical Adenopathy Extremities: No Clubbing, Cyanosis, - - R forearm edema, no changes of r elbow. R wrist limit of ROM due to pain to 10 degrees flexion -active, 20 degrees flexion-passive motion Skin: No Nodules or Sclerosis, - - erythema of r hand and wrist resolved Neurological: Alert and Oriented x 3, NL Muscle Strength and Tone Result Diagrams: 08/27/19 05:12 08/28/19 12:13 Microbiology and Other Data: Microbiology 08/26/19 23:01 Urine Culture - Final Urine No Growth (<1,000 CFU/mL) 08/26/19 23:05 Aerobic Blood Culture - Preliminary Blood Venous No Growth Day 1 Anaerobic Blood Culture - Preliminary No Growth Day 1 08/26/19 21:45 Aerobic Blood Culture - Preliminary Blood Venous No Growth Day 1 Anaerobic Blood Culture - Preliminary No Growth Day 1 Assess/Plan/Problems-Billing Ms Martínez is a 53 yo F who has a h/o tobacco abuse who presented to the ER with c/ o R hand redness and swelling and was admitted for a R UE cellulitis possible tenosynovitis. - Patient Problems (1) Cellulitis of multiple sites of right hand and fingers Comment: appreciate orthopedics evaluation. Pt has worsening edema of her forearm but she is still quite paifull when attempting to flex wrist. Continue ceftriaxone and vancomycin. D/w ID and ortho-will get MRI arm, placed NPO in case she needs to go to OR will get venous dopplers of r arm to r/o DVT (2) Tobacco abuse Comment: Continue nicotine patch and prn lozenge. (3) DVT prophylaxis Comment: lovenox Status and Disposition: inpatient
--- NOTE | 2019-08-29 11:27 | PN ---
Progress Note - Progress Note Date of Service: 08/29/19 SOAP: Subjective: []Pt seen at bedside. She reports minimal improvement of pain of the R hand/ wrist/ forearm. Redness has improved but swelling of the forearm has worsened, while swelling of the digits and hand have improved. Denies fever/chills. Objective: []General: NAD, nontoxic appearing MSK, RUE: Mild erythema over the dorsum of the wrist, erythema has otherwise resolved and there is no proximal streaking. Edema of the digits and dorsum of the hand has improved, edema of the forearm up to the elbow has worsened. Tender to palpation over the dorsal wrist and distal forearm, there are no palpable cords and the forearm is not erthematous. There is no obvious fluctuance. PROM digits - able to fully extend, improved flexion into a loose fist. ROM wrist 45 degrees of arc motion. Intact sensation to light touch and radial pulse 2+, capillary refill less than two seconds distally Assessment: Right hand cellulitis Plan: Continue with ceftriaxone and vancomycin per ID MRI and dopplar for eval of increased swelling, May be due to dependent positioning overnight. NPO until MRI returns, Dr Zapien made aware of ongoing tests Vital Signs Temp 97.9 F 08/29/19 07:15 Pulse 65 08/29/19 07:15 Resp 16 08/29/19 07:37 BP 108/63 08/29/19 07:15 Pulse Ox 95 08/29/19 07:15 Intake & Output 08/28/19 08/29/19 08/29/19 18:59 06:59 18:59 Intake Total 360 285 480 Balance 360 285 480 Intake: IV Fluids 20 NS 20 IVPB 265 ABX - VANCOMYCIN 265 Oral 360 0 480 Other: # Voids 1 Laboratory Last Values WBC 9.8 10^3/uL (3.5-10.8) 08/27/19 05:12 RBC 3.59 10^6 /uL (3.70-4.87) L 08/27/19 05:12 Hgb 11.3 g/dL (12.0-16.0) L 08/27/19 05:12 Hct 33 % (35-47) L 08/27/19 05:12 MCV 92 fL (80-97) 08/27/19 05:12 MCH 32 pg (27-31) H 08/27/19 05:12 MCHC 34 g/dL (31-36) 08/27/19 05:12 RDW 13 % (10-15) 08/27/19 05:12 Plt Count 229 10^3/uL (150-450) 08/27/19 05:12 MPV 7.7 fL (7.4-10.4) 08/27/19 05:12 Neut % (Auto) 79.0 % 08/27/19 05:12 Lymph % (Auto) 12.4 % 08/27/19 05:12 [place] % (Auto) 8.1 % 08/27/19 05:12 Eos % (Auto) 0.3 % 08/27/19 05:12 Baso % (Auto) 0.2 % 08/27/19 05:12 Absolute Neuts (auto) 7.7 10^3/ul (1.5-7.7) 08/27/19 05:12 Absolute Lymphs (auto) 1.2 10^3/ul (1.0-4.8) 08/27/19 05:12 Absolute Monos (auto) 0.8 10^3/ul (0-0.8) 08/27/19 05:12 Absolute Eos (auto) 0.0 10^3/ul (0-0.6) 08/27/19 05:12 Absolute Basos (auto) 0.0 10^3/ul (0-0.2) 08/27/19 05:12 Absolute Nucleated RBC 0.0 10^3/ul 08/27/19 05:12 Nucleated RBC % 0.1 08/27/19 05:12 Sodium 138 mmol/L (135-145) 08/27/19 05:12 Potassium 3.2 mmol/L (3.5-5.0) L 08/27/19 05:12 Chloride 107 mmol/L (101-111) 08/27/19 05:12 Carbon Dioxide 24 mmol/L (22-32) 08/27/19 05:12 Anion Gap 7 mmol/L (2-11) 08/27/19 05:12 BUN 21 mg/dL (6-24) 08/28/19 12:13 Creatinine 0.58 mg/dL (0.51-0.95) 08/28/19 12:13 Est GFR ( Amer) 132.1 (>60) 08/28/19 12:13 Est GFR (Non-Af Amer) 109.2 (>60) 08/28/19 12:13 BUN/Creatinine Ratio 18.5 (8-20) 08/27/19 05:12 Glucose 99 mg/dL (70-100) 08/27/19 05:12 Lactic Acid 0.9 mmol/L (0.5-2.0) 08/26/19 21:45 Calcium 8.4 mg/dL (8.6-10.3) L 08/27/19 05:12 Total Bilirubin 0.70 mg/dL (0.2-1.0) 08/26/19 21:45 AST 16 U/L (13-39) 08/26/19 21:45 ALT 19 U/L (7-52) 08/26/19 21:45 Alkaline Phosphatase 94 U/L (34-104) 08/26/19 21:45 C-Reactive Protein 48.60 mg/L (<8.01) H 08/29/19 10:40 Total Protein 7.0 g/dL (6.4-8.9) 08/26/19 21:45 Albumin 3.9 g/dL (3.2-5.2) 08/26/19 21:45 Globulin 3.1 g/dL (2-4) 08/26/19 21:45 Albumin/Globulin Ratio 1.3 (1-3) 08/26/19 21:45 Urine Color Yellow 08/26/19 23:01 Urine Appearance Clear 08/26/19 23:01 Urine pH 5.0 (5-9) 08/26/19 23:01 Ur Specific [place] 1.008 (1.010-1.030) L 08/26/19 23:01 Urine Protein Negative (Negative) 08/26/19 23:01 Urine Ketones Negative (Negative) 08/26/19 23:01 Urine Blood 1+ (Negative) A 08/26/19 23:01 Urine Nitrate Negative (Negative) 08/26/19 23:01 Urine Bilirubin Negative (Negative) 08/26/19 23:01 Urine Urobilinogen Negative (Negative) 08/26/19 23:01 Ur Leukocyte Esterase Negative (Negative) 08/26/19 23:01 Urine WBC (Auto) Trace(0-5/hpf) (Absent) 08/26/19 23:01 Urine RBC (Auto) Trace(0-2/hpf) (Absent) 08/26/19 23:01 Ur Squamous Epith Cells Present (Absent) A 08/26/19 23:01 Urine Bacteria Absent (Absent) 08/26/19 23:01 Urine Glucose Negative (Negative) 08/26/19 23:01 Vancomycin Trough 3.5 mcg/mL 08/28/19 12:13 Hepatitis C Antibody Negative (Negative) 08/27/19 05:12 Hepatitis C Ab Index 0.03 s/c 08/27/19 05:12
[2019-08-29] MEDS: LORazepam TAB(*) 0.5 MG PO PRN ×2 (11:44→23:21)
[2019-08-29] MEDS: Nicotine Lozenge* mini 2 MG LOZNG.MINI MT PRN (11:45)
[2019-08-29] MEDS ORDERED: Lidocaine 1% INJ* 10 MG/ML 30 ML SDV INJ ONE (15:05)
--- NOTE | 2019-08-29 16:08 | PN ---
Progress Note - Progress Note Date of Service: 08/29/19 Note: Procedure note: I&D of abscess, dorsum of right hand Time out and consent performed with two 4N nurses present chloroprep used to sterilize site. 8cc 1% lidocaine injected into area. 7mm longitudinal incision made, small amount of pus and blood encountered which was cultured. hemostat used to break up adhesions. tolerated well by the patient. there was less than 5ml of bloodloss. sensation of digits and f/e digits intact s/p procedure with less than 2 seconds capillary refill distally. Will do soapy soaks 20 minutes TID and keep covered with gauze wrap while not soaking. Continue IV abx per ID.
[2019-08-29] MEDS: Enoxaparin(*) 40 MG/0.4 ML SYR SUBCUT SCH (20:39)
[2019-08-29] MEDS: Nicotine Patch Removal NOTE FOLLOW UP SCH (22:10)
[2019-08-30] MEDS: cefTRIAXone(*) 1 GM in NS 0.9% 50 ML* 50 ML IVPB SCH (05:00)
[2019-08-30] MEDS ORDERED: Vancomycin Trough Check NOTE FOLLOW UP ONE (05:30)
[2019-08-30 05:59] LABS: ABS Basophils 0.1 10^3/ul (0-0.2); ABS Eosinophils 0.2 10^3/ul (0-0.6); ABS Lymphocytes 2.3 10^3/ul (1.0-4.8); ABS Monocytes 0.7 10^3/ul (0-0.8); Eosinophil % 2.7 %; Hematocrit 30 % (35-47); Hemoglobin 10.6 g/dL (12.0-16.0); Lymphocyte % 31.7 %; Mean Corpuscular HGB Conc 35 g/dL (31-36); Mean Corpuscular Hemoglobin 32 pg (27-31); Mean Corpuscular Volume 92 fL (80-97); Mean Platelet Volume 7.5 fL (7.4-10.4); Platelet Count 263 10^3/uL (150-450); Red Cell Distribution Width 13 % (10-15); White Blood Count 7.2 10^3/uL (3.5-10.8)
[2019-08-30] MEDS: Vancomycin(*) 1,000 MG in NS 0.9% 250 ML* 250 ML IV SCH ×3 (06:15→21:29)
[2019-08-30] MEDS: Acetaminophen TAB* 325 MG PO SCH ×3 (07:06→16:40)
[2019-08-30] MEDS: Nicotine PATCH 21 MG/24 HR* PATCH TRANSDERM SCH (07:49)
--- NOTE | 2019-08-30 09:34 | PN ---
Progress Note - Progress Note Date of Service: 08/30/19 SOAP: Subjective: []Pt seen at bedside. R hand/ wrist remains painful but tolerable, ROM and erythema improving. She had bedside I&D last night which she tolerated well and report immediate improvement of digit ROM. Denies fever, chills. Objective: []General: NAD, nontoxic appearing MSK, RUE: Incision without drainage. Minimal erythema over the dorsum of the wrist with no proximal streaking. Edema of the digits and dorsum of the hand has again improved, edema of the forearm up to the elbow unchanged. Tender to palpation over the dorsal wrist and distal forearm. There is no obvious fluctuance. AROM digits improved able to f/e though still limited. PROM digits able to fully extend, flexion again improved but unable to make a full fist. ROM wrist 45 degrees of arc motion. Intact sensation to light touch throughout forearm, hand, digits. Capillary refill less than two seconds distally Assessment: Right hand cellulitis and dorsal abscess Plan: Continue with ceftriaxone and vancomycin per ID Follow wound cultures Warm soapy soaks TID x 20 min. Keep dressed with gauze wrap between soaks. Patient was educated to ensure incision is submerged in water while soaking, she had been soaking finger tips. Will continue to follow to ensure improvement. Labs and exam improved today. Vital Signs Temp 98.7 F 08/30/19 07:15 Pulse 72 08/30/19 07:15 Resp 16 08/30/19 07:23 BP 129/65 08/30/19 07:15 Pulse Ox 99 08/30/19 07:15 Intake & Output 08/29/19 08/30/19 08/30/19 18:59 06:59 18:59 Intake Total 480 550 Balance 480 550 Weight 146 lb Intake: IV Fluids 300 ABX - CEFTRIAXONE 50 ABX - VANCOMYCIN 250 IVPB 250 ABX - VANCOMYCIN 250 Oral 480 0 Other: Estimated Void Medium # Bowel Movements 1 Estimated Stool Amount Medium # Voids 2 0 Laboratory Last Values WBC 7.2 10^3/uL (3.5-10.8) 08/30/19 05:31 RBC 3.30 10^6 /uL (3.70-4.87) L 08/30/19 05:31 Hgb 10.6 g/dL (12.0-16.0) L 08/30/19 05:31 Hct 30 % (35-47) L 08/30/19 05:31 MCV 92 fL (80-97) 08/30/19 05:31 MCH 32 pg (27-31) H 08/30/19 05:31 MCHC 35 g/dL (31-36) 08/30/19 05:31 RDW 13 % (10-15) 08/30/19 05:31 Plt Count 263 10^3/uL (150-450) 08/30/19 05:31 MPV 7.5 fL (7.4-10.4) 08/30/19 05:31 Neut % (Auto) 55.4 % 08/30/19 05:31 Lymph % (Auto) 31.7 % 08/30/19 05:31 [place] % (Auto) 9.3 % 08/30/19 05:31 Eos % (Auto) 2.7 % 08/30/19 05:31 Baso % (Auto) 0.9 % 08/30/19 05:31 Absolute Neuts (auto) 4.0 10^3/ul (1.5-7.7) 08/30/19 05:31 Absolute Lymphs (auto) 2.3 10^3/ul (1.0-4.8) 08/30/19 05:31 Absolute Monos (auto) 0.7 10^3/ul (0-0.8) 08/30/19 05:31 Absolute Eos (auto) 0.2 10^3/ul (0-0.6) 08/30/19 05:31 Absolute Basos (auto) 0.1 10^3/ul (0-0.2) 08/30/19 05:31 Absolute Nucleated RBC 0.0 10^3/ul 08/30/19 05:31 Nucleated RBC % 0.0 08/30/19 05:31 Sodium 138 mmol/L (135-145) 08/27/19 05:12 Potassium 3.2 mmol/L (3.5-5.0) L 08/27/19 05:12 Chloride 107 mmol/L (101-111) 08/27/19 05:12 Carbon Dioxide 24 mmol/L (22-32) 08/27/19 05:12 Anion Gap 7 mmol/L (2-11) 08/27/19 05:12 BUN 21 mg/dL (6-24) 08/28/19 12:13 Creatinine 0.58 mg/dL (0.51-0.95) 08/28/19 12:13 Est GFR ( Amer) 132.1 (>60) 08/28/19 12:13 Est GFR (Non-Af Amer) 109.2 (>60) 08/28/19 12:13 BUN/Creatinine Ratio 18.5 (8-20) 08/27/19 05:12 Glucose 99 mg/dL (70-100) 08/27/19 05:12 Lactic Acid 0.9 mmol/L (0.5-2.0) 08/26/19 21:45 Calcium 8.4 mg/dL (8.6-10.3) L 08/27/19 05:12 Total Bilirubin 0.70 mg/dL (0.2-1.0) 08/26/19 21:45 AST 16 U/L (13-39) 08/26/19 21:45 ALT 19 U/L (7-52) 08/26/19 21:45 Alkaline Phosphatase 94 U/L (34-104) 08/26/19 21:45 C-Reactive Protein 27.59 mg/L (<8.01) H 08/30/19 05:31 Total Protein 7.0 g/dL (6.4-8.9) 08/26/19 21:45 Albumin 3.9 g/dL (3.2-5.2) 08/26/19 21:45 Globulin 3.1 g/dL (2-4) 08/26/19 21:45 Albumin/Globulin Ratio 1.3 (1-3) 08/26/19 21:45 Urine Color Yellow 08/26/19 23:01 Urine Appearance Clear 08/26/19 23:01 Urine pH 5.0 (5-9) 08/26/19 23:01 Ur Specific [place] 1.008 (1.010-1.030) L 08/26/19 23:01 Urine Protein Negative (Negative) 08/26/19 23:01 Urine Ketones Negative (Negative) 08/26/19 23:01 Urine Blood 1+ (Negative) A 08/26/19 23:01 Urine Nitrate Negative (Negative) 08/26/19 23:01 Urine Bilirubin Negative (Negative) 08/26/19 23:01 Urine Urobilinogen Negative (Negative) 08/26/19 23:01 Ur Leukocyte Esterase Negative (Negative) 08/26/19 23:01 Urine WBC (Auto) Trace(0-5/hpf) (Absent) 08/26/19 23:01 Urine RBC (Auto) Trace(0-2/hpf) (Absent) 08/26/19 23:01 Ur Squamous Epith Cells Present (Absent) A 08/26/19 23:01 Urine Bacteria Absent (Absent) 08/26/19 23:01 Urine Glucose Negative (Negative) 08/26/19 23:01 Vancomycin Trough 12.6 mcg/mL 08/30/19 05:31 Hepatitis C Antibody Negative (Negative) 08/27/19 05:12 Hepatitis C Ab Index 0.03 s/c 08/27/19 05:12
[2019-08-30] MEDS ORDERED: Tetan/Diph/Pertus SYR(Tdap)* 0.5 ML SYR(BOOSTRIX) use SYR contains LATEX IM ONE (10:00)
--- NOTE | 2019-08-30 10:20 | PN ---
Subjective Date of Service: 08/30/19 Interval History: Pt feels better. erythema on hand resolved. Able to move her wrist more Objective Active Medications: Acetaminophen (Tylenol Tab*) 650 mg PO Q6HR [facility] Last Admin: 08/30/19 07:06 Dose: 650 mg Albuterol (Ventolin Hfa Inhaler*) 2 puff INH Q4H PRN PRN Reason: SOB/WHEEZING Enoxaparin Sodium (Lovenox(*)) 40 mg SUBCUT BEDTIME [facility] Last Admin: 08/29/19 20:39 Dose: 40 mg Ceftriaxone Sodium 1 gm/ (Sodium Chloride) 50 mls @ 100 mls/hr IVPB Q24H [facility] Last Admin: 08/30/19 05:00 Dose: 100 mls/hr Vancomycin HCl 1,000 mg/ (Sodium Chloride) 250 mls @ 166.667 mls/hr IV Q8H [facility] Last Admin: 08/30/19 06:15 Dose: 166.667 mls/hr Ketorolac Tromethamine (Toradol Inj*) 30 mg IV PUSH Q6H PRN PRN Reason: PAIN - MODERATE Stop: 09/01/19 23:39 Last Admin: 08/29/19 23:20 Dose: 30 mg Lorazepam (Ativan Tab(*)) 0.5 mg PO Q6H PRN PRN Reason: ANXIETY Last Admin: 08/29/19 23:21 Dose: 0.5 mg Morphine Sulfate (Morphine Inj (Syringe)*) 4 mg IV Q6H PRN PRN Reason: PAIN - SEVERE Last Admin: 08/29/19 20:39 Dose: 4 mg Nicotine (Nicotine Patch 21 Mg/24 Hr*) 1 patch TRANSDERM DAILY@0800 [facility] Last Admin: 08/30/19 07:49 Dose: 1 patch Nicotine Polacrilex (Nicotine Lozenge Mini) 2 mg MT Q2H PRN PRN Reason: CRAVING Last Admin: 08/29/19 11:45 Dose: 2 mg Ondansetron HCl (Zofran Inj*) 4 mg IV Q6H PRN PRN Reason: NAUSEA Pharmacy Consult (Vancomycin Per Pharmacy*) 1 note FOLLOW UP . PRN PRN Reason: PER PROTOCOL Pharmacy Profile Note (Nicotine Patch Removal Note*) 1 note FOLLOW UP 2100 [facility] Last Admin: 08/29/19 22:10 Dose: 1 note Vital Signs - 8 hr 08/30/19 08/30/19 08/30/19 03:30 06:38 07:15 Temperature 97.8 F 98.7 F Pulse Rate 75 72 Respiratory 18 16 16 Rate Blood Pressure 136/73 129/65 (mmHg) O2 Sat by Pulse 97 99 Oximetry 08/30/19 07:23 Temperature Pulse Rate Respiratory 16 Rate Blood Pressure (mmHg) O2 Sat by Pulse Oximetry Oxygen Devices in Use Now: None Appearance: 53 yo f in nAD, aAOx3 Eyes: No Scleral Icterus, PERRLA Ears/Nose/Mouth/Throat: NL Teeth, Lips, Gums, Mucous Membranes Moist Neck: NL Appearance and Movements; NL JVP, Trachea Midline Respiratory: Symmetrical Chest Expansion and Respiratory Effort Cardiovascular: NL Sounds; No Murmurs; No JVD, RRR Abdominal: NL Sounds; No Tenderness; No Distention Lymphatic: No Cervical Adenopathy Extremities: - - R hand/wrist with mild edema-improved, small incision site on dorsal aspect R hand at 5 mm -not draining. R forearm edema improving. No skin erythema Skin: No Nodules or Sclerosis Neurological: Alert and Oriented x 3, NL Muscle Strength and Tone Result Diagrams: 08/30/19 05:31 08/28/19 12:13 Microbiology and Other Data: Microbiology 08/26/19 23:01 Urine Culture - Final Urine No Growth (<1,000 CFU/mL) 08/26/19 23:05 Aerobic Blood Culture - Preliminary Blood Venous No Growth Day 1 Anaerobic Blood Culture - Preliminary No Growth Day 1 08/26/19 21:45 Aerobic Blood Culture - Preliminary Blood Venous No Growth Day 1 Anaerobic Blood Culture - Preliminary No Growth Day 1 Assess/Plan/Problems-Billing Ms Martínez is a 53 yo F who has a h/o tobacco abuse who presented to the ER with c/ o R hand redness and swelling and was admitted for a R UE cellulitis possible tenosynovitis. - Patient Problems (1) Cellulitis of multiple sites of right hand and fingers Comment: appreciate orthopedics evaluation- s/o I&D of r wrist abscess-small. today much better. Continue ceftriaxone and vancomycin x 2 days, then as d/w ID 10 days of Linezolid and Cipro(unless cx resuls in other sensitivities) venous dopplers of r arm neg for DVT (2) Tobacco abuse Comment: Continue nicotine patch and prn lozenge. (3) DVT prophylaxis Comment: lovenox Status and Disposition: inpatient
--- NOTE | 2019-08-30 12:45 | CONS ---
CONSULTATION REPORT: DATE OF CONSULT: 08/30/19 REQUESTING PHYSICIAN: Dr. Schroeder. CONSULTING SERVICE: Infectious Disease. REASON FOR CONSULTATION: Right hand cellulitis and abscess. IMPRESSION: 1. Right hand cellulitis and small abscess that on MRI was around the extensor digitorum tendons, now status post incision and debridement of the Gram stain from the purulent fluid shows no organisms and had been on antibiotics for few days at a time. 2. Unclear tetanus status. 3. SULFA allergy. RECOMMENDATIONS: We will continue vancomycin and ceftriaxone. Await the culture to see if anything will grow and ensure significant improvement in range of motion. We will add an HIV antibody. 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 She is not sure when her last tetanus shot was. She was started on vancomycin and ceftriaxone at that time. Blood cultures taken at that time were negative. Her initial white count was 12 on the 08/26/19 and CRP was 100 on the 08/28/19. She had improvement in the erythema in her wrist and hand, but persistence of swelling and decreased range of motion. She had an MRI yesterday with results as described above. She had a bedside I and D yesterday that she tolerated well with some purulent fluid expressed. Today, her CRP is down to 27, white count is 7, erythema is resolved. She still has definition of decreased range of motion, but it is improved compared to a couple days ago she thinks. She does not have any fevers or chills, has not had an infection that requiring hospitalization in the past. No injection drugs. MEDICATIONS: 1. Tylenol. 2. Albuterol. 3. Enoxaparin. 4. Morphine as needed. 5. Nicotine as needed. 6. Zofran as needed. 7. Ceftriaxone 1 g a day. 8. Vancomycin 1 g IV every 8 hours. SOCIAL HISTORY: She lives in [place], works in construction. No injection drugs. She does smoke tobacco. FAMILY HISTORY: Father from malignancy. Mother from stroke. REVIEW OF SYSTEMS: All negative except as noted above to a 12-point review of systems. PHYSICAL EXAM: Vital Signs: Temperature is 37, heart rate 72, respiratory rate 16, blood pressure 129/65, oxygen saturation 99% on room air. In general, she is awake, not in distress. Neurologic: She is oriented x3. Follows all commands. Psychiatric: She has a flattened affect, delayed response. HEENT: There is no conjunctival hemorrhage. Oropharynx without lesions. Neck is supple without mass. Heart is regular rate and rhythm without murmurs, rubs or gallops. Lungs are clear to auscultation bilaterally. Abdomen: Soft, nontender, nondistended. There are bowel sounds present. Skin: There is no rash or splinter hemorrhage. Musculoskeletal: Right medial hand 0.5 cm incision with no drainage. There is diffuse edema from the fingertips through the solomon and without crepitus or fluctuance that centered around the distal hand. She has decreased flexion and extension of the fingers and wrist. LABORATORY DATA: Hep C antibody negative. White blood cell count 7, hemoglobin 10, platelets 263. Creatinine 0.5. CRP 27. Urinalysis shows blood. Please see impressions and recommendations outlined above. Thanks for asking me to see Ms. Martínez in consultation. [id number]/[facility] #: [id number] [facility]
[2019-08-30] MEDS: Nicotine Lozenge* mini 2 MG LOZNG.MINI MT PRN (13:03)
[2019-08-30] MEDS: LORazepam TAB(*) 0.5 MG PO PRN (13:03)
[2019-08-30 14:18] LABS: HIV 4th Generation Nonreactive (Nonreactive)
[2019-08-30] MEDS: Ketorolac INJ* 30 MG/ML 1 ML VIAL IV PUSH PRN (19:42)
[2019-08-30] MEDS: Nicotine Patch Removal NOTE FOLLOW UP SCH (21:30)
[2019-08-30] MEDS: Enoxaparin(*) 40 MG/0.4 ML SYR SUBCUT SCH (21:31)
[2019-08-30] MEDS: Morphine INJ* 4 MG/ML 1 ML SYRINGE (NEW SYRINGE VERSION) IV PRN (22:27)
[2019-08-31] MEDS: Acetaminophen TAB* 325 MG PO SCH ×4 (00:33→18:22)
[2019-08-31] MEDS: cefTRIAXone(*) 1 GM in NS 0.9% 50 ML* 50 ML IVPB SCH (05:31)
[2019-08-31] MEDS: Vancomycin(*) 1,000 MG in NS 0.9% 250 ML* 250 ML IV SCH ×3 (06:20→20:49)
[2019-08-31] MEDS: LORazepam TAB(*) 0.5 MG PO PRN (07:19)
[2019-08-31] MEDS: Ketorolac INJ* 30 MG/ML 1 ML VIAL IV PUSH PRN ×2 (07:19→23:02)
[2019-08-31] MEDS: Nicotine PATCH 21 MG/24 HR* PATCH TRANSDERM SCH (07:23)
--- NOTE | 2019-08-31 11:02 | PN ---
Subjective Date of Service: 08/31/19 Interval History: Pt note3d that the R hand is much less swollen and she is able to move the wrist more Objective Active Medications: Acetaminophen (Tylenol Tab*) 650 mg PO Q6HR [facility] Last Admin: 08/31/19 07:18 Dose: 650 mg Albuterol (Ventolin Hfa Inhaler*) 2 puff INH Q4H PRN PRN Reason: SOB/WHEEZING Enoxaparin Sodium (Lovenox(*)) 40 mg SUBCUT BEDTIME [facility] Last Admin: 08/30/19 21:31 Dose: Not Given Ceftriaxone Sodium 1 gm/ (Sodium Chloride) 50 mls @ 100 mls/hr IVPB Q24H [facility] Last Admin: 08/31/19 05:31 Dose: 100 mls/hr Vancomycin HCl 1,000 mg/ (Sodium Chloride) 250 mls @ 166.667 mls/hr IV Q8H [facility] Last Admin: 08/31/19 06:20 Dose: 166.667 mls/hr Ketorolac Tromethamine (Toradol Inj*) 30 mg IV PUSH Q6H PRN PRN Reason: PAIN - MODERATE Stop: 09/01/19 23:39 Last Admin: 08/31/19 07:19 Dose: 30 mg Lorazepam (Ativan Tab(*)) 0.5 mg PO Q6H PRN PRN Reason: ANXIETY Last Admin: 08/31/19 07:19 Dose: 0.5 mg Morphine Sulfate (Morphine Inj (Syringe)*) 4 mg IV Q6H PRN PRN Reason: PAIN - SEVERE Last Admin: 08/30/19 22:27 Dose: 4 mg Nicotine (Nicotine Patch 21 Mg/24 Hr*) 1 patch TRANSDERM DAILY@0800 [facility] Last Admin: 08/31/19 07:23 Dose: 1 patch Nicotine Polacrilex (Nicotine Lozenge Mini) 2 mg MT Q2H PRN PRN Reason: CRAVING Last Admin: 08/30/19 13:03 Dose: 2 mg Ondansetron HCl (Zofran Inj*) 4 mg IV Q6H PRN PRN Reason: NAUSEA Pharmacy Consult (Vancomycin Per Pharmacy*) 1 note FOLLOW UP . PRN PRN Reason: PER PROTOCOL Pharmacy Profile Note (Nicotine Patch Removal Note*) 1 note FOLLOW UP 2100 [facility] Last Admin: 08/30/19 21:30 Dose: 1 note Pharmacy Profile Note (Vancomycin Trough Check) 1 note FOLLOW UP 0530 ONE Stop: 09/02/19 05:31 Vital Signs - 8 hr 08/31/19 08/31/19 08/31/19 03:31 06:57 07:19 Temperature 97.5 F 98.7 F Pulse Rate 67 72 Respiratory 16 16 18 Rate Blood Pressure 126/72 128/66 (mmHg) O2 Sat by Pulse 100 98 Oximetry 08/31/19 08:48 Temperature Pulse Rate Respiratory 16 Rate Blood Pressure (mmHg) O2 Sat by Pulse Oximetry Oxygen Devices in Use Now: None Appearance: 53 yo F in nAD, aAOx3 Eyes: No Scleral Icterus, PERRLA Ears/Nose/Mouth/Throat: NL Teeth, Lips, Gums, Mucous Membranes Moist Neck: NL Appearance and Movements; NL JVP, Trachea Midline Respiratory: Symmetrical Chest Expansion and Respiratory Effort, Clear to Auscultation Cardiovascular: NL Sounds; No Murmurs; No JVD, RRR Abdominal: NL Sounds; No Tenderness; No Distention Lymphatic: No Cervical Adenopathy Extremities: No Clubbing, Cyanosis, - - r wrist edema improving, ROM improving, Skin: - - R dorsal aspect of wrist small incision with no drainage Neurological: Alert and Oriented x 3, NL Muscle Strength and Tone Result Diagrams: 08/30/19 05:31 08/28/19 12:13 Microbiology and Other Data: Microbiology 08/26/19 23:01 Urine Culture - Final Urine No Growth (<1,000 CFU/mL) 08/26/19 23:05 Aerobic Blood Culture - Preliminary Blood Venous No Growth Day 1 Anaerobic Blood Culture - Preliminary No Growth Day 1 08/26/19 21:45 Aerobic Blood Culture - Preliminary Blood Venous No Growth Day 1 Anaerobic Blood Culture - Preliminary No Growth Day 1 Assess/Plan/Problems-Billing Ms Martínez is a 53 yo F who has a h/o tobacco abuse who presented to the ER with c/ o R hand redness and swelling and was admitted for a R UE cellulitis possible tenosynovitis. - Patient Problems (1) Cellulitis of multiple sites of right hand and fingers Comment: appreciate orthopedics evaluation- s/o I&D of r wrist abscess-small. today much better. Continue ceftriaxone and vancomycin x 1 day, then as d/w ID 10 days of Linezolid and Cipro (unless cx results in other sensitivities) at discharge venous dopplers of r arm neg for DVT (2) Tobacco abuse Comment: Continue nicotine patch and prn lozenge. (3) Anemia Comment: likely dilutional-no signs or symptoms of bleeding (4) DVT prophylaxis Comment: lovenox Status and Disposition: inpatient
--- NOTE | 2019-08-31 11:53 | PN ---
Progress Note - Progress Note Date of Service: 08/31/19 SOAP: Subjective: CC: Right hand infection HPI: Ms. Martínez is a 53 yo female with PMH significant for tobacco abuse, hx polysubstance abuse, and anxiety; who presented to the hospital with a right hand infection. Denies fever, chills, nausea, vomiting, or diarrhea. She feels that the redness has almost completely resolved, the edema is improving and she is having improved movement of the hand. She is anxious to be discharged home. Objective: Vital Signs - 8 hr 08/31/19 08/31/19 08/31/19 06:57 07:19 08:48 Temperature 98.7 F Pulse Rate 72 Respiratory 16 18 16 Rate Blood Pressure 128/66 (mmHg) O2 Sat by Pulse 98 Oximetry Physical Exam: General: NAD, sitting up in bed Neurological: Alert and Oriented x4 HEENT: Moist MM, no thrush Cardiovascular: Heart rate regular Respiratory: Lung sounds clear Abdominal: Bowel sounds present; ABD soft, non tender and non distended MSK: Able to move right. There is edema to the right hand and fingers, per the Pt this is improving Skin: No rash. There is slight erythema to the right hand near the knuckles Laboratory Last Values WBC 7.2 10^3/uL (3.5-10.8) 08/30/19 05:31 RBC 3.30 10^6 /uL (3.70-4.87) L 08/30/19 05:31 Hgb 10.6 g/dL (12.0-16.0) L 08/30/19 05:31 Hct 30 % (35-47) L 08/30/19 05:31 MCV 92 fL (80-97) 08/30/19 05:31 MCH 32 pg (27-31) H 08/30/19 05:31 MCHC 35 g/dL (31-36) 08/30/19 05:31 RDW 13 % (10-15) 08/30/19 05:31 Plt Count 263 10^3/uL (150-450) 08/30/19 05:31 MPV 7.5 fL (7.4-10.4) 08/30/19 05:31 Neut % (Auto) 55.4 % 08/30/19 05:31 Lymph % (Auto) 31.7 % 08/30/19 05:31 [place] % (Auto) 9.3 % 08/30/19 05:31 Eos % (Auto) 2.7 % 08/30/19 05:31 Baso % (Auto) 0.9 % 08/30/19 05:31 Absolute Neuts (auto) 4.0 10^3/ul (1.5-7.7) 08/30/19 05:31 Absolute Lymphs (auto) 2.3 10^3/ul (1.0-4.8) 08/30/19 05:31 Absolute Monos (auto) 0.7 10^3/ul (0-0.8) 08/30/19 05:31 Absolute Eos (auto) 0.2 10^3/ul (0-0.6) 08/30/19 05:31 Absolute Basos (auto) 0.1 10^3/ul (0-0.2) 08/30/19 05:31 Absolute Nucleated RBC 0.0 10^3/ul 08/30/19 05:31 Nucleated RBC % 0.0 08/30/19 05:31 Sodium 138 mmol/L (135-145) 08/27/19 05:12 Potassium 3.2 mmol/L (3.5-5.0) L 08/27/19 05:12 Chloride 107 mmol/L (101-111) 08/27/19 05:12 Carbon Dioxide 24 mmol/L (22-32) 08/27/19 05:12 Anion Gap 7 mmol/L (2-11) 08/27/19 05:12 BUN 21 mg/dL (6-24) 08/28/19 12:13 Creatinine 0.58 mg/dL (0.51-0.95) 08/28/19 12:13 Est GFR ( Amer) 132.1 (>60) 08/28/19 12:13 Est GFR (Non-Af Amer) 109.2 (>60) 08/28/19 12:13 BUN/Creatinine Ratio 18.5 (8-20) 08/27/19 05:12 Glucose 99 mg/dL (70-100) 08/27/19 05:12 Lactic Acid 0.9 mmol/L (0.5-2.0) 08/26/19 21:45 Calcium 8.4 mg/dL (8.6-10.3) L 08/27/19 05:12 Total Bilirubin 0.70 mg/dL (0.2-1.0) 08/26/19 21:45 AST 16 U/L (13-39) 08/26/19 21:45 ALT 19 U/L (7-52) 08/26/19 21:45 Alkaline Phosphatase 94 U/L (34-104) 08/26/19 21:45 C-Reactive Protein 27.59 mg/L (<8.01) H 08/30/19 05:31 Total Protein 7.0 g/dL (6.4-8.9) 08/26/19 21:45 Albumin 3.9 g/dL (3.2-5.2) 08/26/19 21:45 Globulin 3.1 g/dL (2-4) 08/26/19 21:45 Albumin/Globulin Ratio 1.3 (1-3) 08/26/19 21:45 Urine Color Yellow 08/26/19 23:01 Urine Appearance Clear 08/26/19 23: Urine pH 5.0 (5-9) 08/26/19 23:01 Ur Specific [place] 1.008 (1.010-1.030) L 08/26/19 23:01 Urine Protein Negative (Negative) 08/26/19 23: Urine Ketones Negative (Negative) 08/26/19 23: Urine Blood 1+ (Negative) A 08/26/19 23:01 Urine Nitrate Negative (Negative) 08/26/19 23:01 Urine Bilirubin Negative (Negative) 08/26/19 23: Urine Urobilinogen Negative (Negative) 08/26/19 23: Ur Leukocyte Esterase Negative (Negative) 08/26/19 23:01 Urine WBC (Auto) Trace(0-5/hpf) (Absent) 08/26/19 23:01 Urine RBC (Auto) Trace(0-2/hpf) (Absent) 08/26/19 23:01 Ur Squamous Epith Cells Present (Absent) A 08/26/19 23:01 Urine Bacteria Absent (Absent) 08/26/19 23:01 Urine Glucose Negative (Negative) 08/26/19 23: Vancomycin Trough 12.6 mcg/mL 08/30/19 05:31 Hepatitis C Antibody Negative (Negative) 08/27/19 05:12 Hepatitis C Ab Index 0.03 s/c 08/27/19 05:12 HIV 1&2 Ab/P24 Ag 4thGn Nonreactive (Nonreactive) 08/30/19 09:49 Microbiology 08/29/19 15:30 Gram Stain - Final Arm Right Wound Culture - Final No Growth Day 2 08/26/19 23:05 Aerobic Blood Culture - Preliminary Blood Venous No Growth Day 4 Anaerobic Blood Culture - Preliminary No Growth Day 4 08/26/19 21:45 Aerobic Blood Culture - Preliminary Blood Venous No Growth Day 4 Anaerobic Blood Culture - Preliminary No Growth Day 4 08/26/19 23:01 Urine Culture - Final Urine No Growth (<1,000 CFU/mL) Assessment: 1. Right hand cellulitis with abscess. Small abscess noted on MRI around the extensor digitorum tendons. S/P I+D. Wound culture with no growth. Blood cultures with no growth to date. Afebrile and leukocytosis has resolved. Erythema has mostly resolved, edema continues to improve, and mobility of the right hand/fingers continues to slowly improve as the swelling improves. She received a Tentus booster yesterday. 2. SULFA allergy. Plan: Continue vancomycin and ceftriaxone while in the hospital. At discharge recommend Linezolid 600 mg PO BID and Cipro 500 mg PO daily for 10 days. Followup with ID outpatient in 1 week. 25 minutes floor time: > 50% spent with the patient discussing ABX at discharge , followup and to call the office if she develops fever, rash or diarrhea.
--- NOTE | 2019-08-31 15:27 | PN ---
Progress Note - Progress Note Date of Service: 08/31/19 SOAP: Subjective: [Pt seen at bedside. R hand/ wrist remains painful but tolerable, ROM and erythema improving. She had bedside I&D 2 nights ago which she tolerated well and report immediate improvement of digit ROM. Denies fever, chills. Objective: []General: NAD, nontoxic appearing MSK, RUE: Incision without drainage. Minimal erythema over the dorsum of the wrist with no proximal streaking. Edema of the digits and dorsum of the hand has again improved, edema of the forearm up to the elbow improved. Tender to palpation over the dorsal wrist and distal forearm. There is no obvious fluctuance. AROM digits improved able to f/e though still limited. PROM digits able to fully extend, flexion again improved but unable to make a full fist. ROM wrist 45 degrees of arc motion. Intact sensation to light touch throughout forearm, hand, digits. Capillary refill less than two seconds distally Vital Signs Temp 97.9 F 08/31/19 11:15 Pulse 76 08/31/19 11:15 Resp 16 08/31/19 11:15 BP 124/69 08/31/19 11:15 Pulse Ox 100 08/31/19 11:15 Intake & Output 08/30/19 08/31/19 08/31/19 18:59 06:59 18:59 Intake Total 1250 250 480 Balance 1250 250 480 Intake: IV Fluids 250 ABX - VANCOMYCIN 250 Oral 1250 0 480 Other: Estimated Void Medium Medium # Bowel Movements 0 1 Estimated Stool Amount Medium # Voids 2 0 2 Assessment: Right hand cellulitis and dorsal abscess Plan: Continue with ceftriaxone and vancomycin per ID, discharge recommend Linezolid 600 mg PO BID and Cipro 500 mg PO daily for 10 days. Followup with ID outpatient in 1 week. Follow wound cultures Warm soapy soaks TID x 20 min. Keep dressed with gauze wrap between soaks. Patient was educated to ensure incision is submerged in water while soaking, she had been soaking finger tips. Will continue to follow to ensure improvement. Labs and exam improved today.
[2019-08-31] MEDS: Morphine INJ* 4 MG/ML 1 ML SYRINGE (NEW SYRINGE VERSION) IV PRN (20:47)
[2019-08-31] MEDS: Enoxaparin(*) 40 MG/0.4 ML SYR SUBCUT SCH (20:58)
[2019-08-31] MEDS: Nicotine Lozenge* mini 2 MG LOZNG.MINI MT PRN (20:58)
[2019-08-31] MEDS: Nicotine Patch Removal NOTE FOLLOW UP SCH (20:59)
[2019-09-01] MEDS: Acetaminophen TAB* 325 MG PO SCH ×2 (01:48→06:20)
[2019-09-01] MEDS: cefTRIAXone(*) 1 GM in NS 0.9% 50 ML* 50 ML IVPB SCH (05:23)
[2019-09-01] MEDS: Vancomycin(*) 1,000 MG in NS 0.9% 250 ML* 250 ML IV SCH (06:13)
[2019-09-01] MEDS: Nicotine PATCH 21 MG/24 HR* PATCH TRANSDERM SCH (07:45)
[2019-09-01 07:52] VITALS: BP 126/71
--- NOTE | 2019-09-01 08:13 | PN ---
Subjective Date of Service: 09/01/19 Interval History: Ms. Martínez is feeling well today and is eager for discharge to home. Objective Active Medications: Acetaminophen (Tylenol Tab*) 650 mg PO Q6HR [facility] Albuterol (Ventolin Hfa Inhaler*) 2 puff INH Q4H PRN Enoxaparin Sodium (Lovenox(*)) 40 mg SUBCUT BEDTIME [facility] Ceftriaxone Sodium 1 gm/ (Sodium Chloride) 50 mls @ 100 mls/hr IVPB Q24H [facility] Vancomycin HCl 1,000 mg/ (Sodium Chloride) 250 mls @ 166.667 mls/hr IV Q8H [facility] Lorazepam (Ativan Tab(*)) 0.5 mg PO Q6H PRN Morphine Sulfate (Morphine Inj (Syringe)*) 4 mg IV Q6H PRN Nicotine (Nicotine Patch 21 Mg/24 Hr*) 1 patch TRANSDERM DAILY@0800 [facility] Nicotine Polacrilex (Nicotine Lozenge Mini) 2 mg MT Q2H PRN Ondansetron HCl (Zofran Inj*) 4 mg IV Q6H PRN Pharmacy Consult (Vancomycin Per Pharmacy*) 1 note FOLLOW UP . PRN Pharmacy Profile Note (Nicotine Patch Removal Note*) 1 note FOLLOW UP 2100 [facility] Pharmacy Profile Note (Vancomycin Trough Check) 1 note FOLLOW UP 0530 ONE Vital Signs: Temp Pulse Resp BP Pulse Ox 98.0 F 67 18 126/71 100 09/01/19 07:15 09/01/19 07:15 09/01/19 07:15 09/01/19 07:15 09/01/19 07:15 Oxygen Devices in Use Now: None Appearance: Female lying in bed in NAD Eyes: No Scleral Icterus Ears/Nose/Mouth/Throat: Mucous Membranes Moist Neck: Trachea Midline Respiratory: Symmetrical Chest Expansion and Respiratory Effort, Clear to Auscultation Cardiovascular: NL Sounds; No Murmurs; No JVD Abdominal: NL Sounds; No Tenderness; No Distention Skin: - - Minimal swelling to anterior surface of right hand, no erythema, ROM limited due to swelling and pain Neurological: Alert and Oriented x 3, NL Muscle Strength and Tone Nutrition: Taking PO's Result Diagrams: 08/30/19 05:31 08/28/19 12:13 Microbiology and Other Data: . Assess/Plan/Problems-Billing Ms Martínez is a 53 yo F who has a h/o tobacco abuse who presented to the ER with c/ o R hand redness and swelling and was admitted for a R UE cellulitis possible tenosynovitis. - Patient Problems (1) Cellulitis of multiple sites of right hand and fingers Comment: - Continue to improve improving - Appreciate orthopedics evaluation- s/p I&D of r wrist abscess-small. - Continue ceftriaxone and vancomycin x 1 day, then as d/w ID 10 days of Linezolid and Cipro (unless cx results in other sensitivities) at discharge - venous dopplers of r arm neg for DVT (2) Anemia Comment: - likely dilutional-no signs or symptoms of bleeding (3) Tobacco abuse Comment: - Continue nicotine patch and prn lozenge. - Smoking cessation discussed (4) DVT prophylaxis Comment: - lovenox (5) Full code status Comment: Status and Disposition: inpatient, discharge to home
--- NOTE | 2019-09-01 15:38 | DS ---
CC: Dr. Yesenia Campbell * [facility] MEDICINE DISCHARGE SUMMARY: DATE OF ADMISSION: 08/26/19 DATE OF DISCHARGE: 09/01/19 PRIMARY CARE PROVIDER: Dr. Yesenia Campbell ATTENDING PHYSICIAN: Dr. Iesha Suh * (dictation provided by Asmita Lynn NP). PRIMARY DIAGNOSES: Right hand cellulitis and likely tenosynovitis. SECONDARY DIAGNOSES: 1. Tobacco abuse. 2. Distant history of polysubstance abuse. 3. Mild anxiety. MEDICATIONS AT TIME OF DISCHARGE: 1. Doxycycline 100 mg p.o. b.i.d. x10 days. 2. Ciprofloxacin 500 mg p.o. b.i.d. x 10 days. 3. Nicotine patch 21 mg for 24 hours daily. HOSPITAL COURSE: Mr. Martínez is a 53-year-old female with no significant past medical history other than tobacco abuse who presented to the hospital on with concern for right hand pain and swelling. Please see dictated H and P from Alda Mack for complete details. In brief, the patient had been out doing heavy labor as per her norm when she suddenly noticed her hand was swollen and painful on the right. In the emergency room, she has a temperature of 101.2. Lab showed a leukocytosis with a white blood cell count of 12.7, her CRP was 100.27. She had a hand x-ray which showed soft tissue swelling with no fracture seen. She had a venous Doppler study, showed "no evidence for deep vein thrombosis." An upper extremity MRI, which showed "findings consistent with the patient's history of cellulitis, in addition there is a more localized fluid collection around the extensor digitorum tendon with a thickened synovium most consistent with synovitis, the possibility of an abscess cannot be ruled out." The patient was also seen by Dr. Zapien from the orthopedic service. He performed an I and D, finding purulent fluid. She had a Gram stain of that which showed no growth. In addition, blood culture show no growth. The patient has been treated with ceftriaxone and vancomycin. Ms. Martínez has had good resolution of her pain, swelling, and erythema, though she does continue to have some mild swelling. She has completed a course of ceftriaxone and vancomycin and was planned to be transitioned over to linezolid and Cipro x10 days. However, as her insurance does not cover linezolid without prior authorization, she will be transitioned to doxycycline and cipro x 10 days. CONDITION: Ms. Martínez is medically stable for discharge to home. DISPOSITION: Home. DIET: Diet regular. ACTIVITY: As tolerated. FOLLOWUP PLANS: 1. The patient is encouraged to follow up with the primary care physician within the next week regarding this acute hospitalization. 2. The patient was encouraged to continue efforts at smoking cessation, was provided with nicotine replacement. TIME SPENT: Approximately 60 minutes were spent on the discharge of this patient, more than half the time spent with the patient at the bedside reviewing the events leading up to and during this hospitalization, performing the physical examination and reviewing the plan of care. ASMITA LYNN NP [id number]/CPS #: [id number] ARLEN
[2019-09-02] MEDS ORDERED: Vancomycin Trough Check NOTE FOLLOW UP ONE (05:30)
== END 2019-09-01 11:00 | disposition home or self-care (01) | DRG 720 ==
LOC: ED 19:09 → MED 08-27 00:14
PROVIDERS: ADMIT Internal Medicine; ATTEND Internal Medicine
PROC: 0X9J0ZZ Drainage of Right Hand, Open Approach (ICD-10-PCS; principal; 2019-08-29)
DX: A41.9 Sepsis, unspecified organism (principal); L03.113 Cellulitis of right upper limb; L02.511 Cutaneous abscess of right hand; M65.9 Synovitis and tenosynovitis, unspecified; D64.9 Anemia, unspecified; F41.9 Anxiety disorder, unspecified; F17.210 Nicotine dependence, cigarettes, uncomplicated; M17.0 Bilateral primary osteoarthritis of knee; M19.042 Primary osteoarthritis, left hand; M19.041 Primary osteoarthritis, right hand; M47.9 Spondylosis, unspecified; Z88.2 Allergy status to sulfonamides; Z28.21 Immunization not carried out because of patient refusal; Z88.6 Allergy status to analgesic agent
CPT/HCPCS: 36415; 80048; 80053; 80202; 81003; 81015; 82565; 83605; 84520; 85025; 86140; 86803; 87040; 87070; 87086; 87205; 87389; 90715; 99284; A9270-GY; J0690; J0696; J1650; J1885; J2270; J3370

== ENCOUNTER 2019-10-13 14:02 | Emergency (ER) | payer OTHER ==
[2019-10-13 14:15] VITALS: BP 146/85
--- NOTE | 2019-10-13 14:49 | UC ---
Hand/Wrist HPI - HPI Summary HPI Summary: 53-year-old woman comes in with a chief complaint of swelling on the dorsum of the right hand. Patient was admitted to the hospital with right hand cellulitis in August 2019. Patient reports at that time the area of swelling on the dorsum of the hand was much larger. Patient finished her by mouth antibiotics and there's been no erythema on the dorsum of the hand since. Fevers no chills. Patient reports is still some swelling on the hand and it is tender to palpation. And also decreases the range of motion of her wrist. Patient also reports right ears irritated. Patient also reports she has chronic cracking rash of her hands. - History Of Current Complaint Chief Complaint: UCUpperExtremity Stated Complaint: LUMP ON HAND AND WOUND ON THUMB Time Seen by Provider: 10/13/19 14:14 Hx Last Menstrual Period: N/A Pain Intensity: 5 - Allergies/Home Medications Allergies/Adverse Reactions: Allergies Allergy/AdvReac Type Severity Reaction Status Date / Time ibuprofen Allergy Rash Verified 10/13/19 14:16 meperidine Allergy Unknown Verified 10/13/19 14:16 Reaction Details Sulfa (Sulfonamide Allergy Rash And Verified 10/13/19 14:16 Antibiotics) Itching Home Medications: Home Medications Cephalexin CAP* [Keflex CAP*] 500 mg PO TID #30 cap 10/13/19 [Rx] Ofloxacin 0.3% (Ear Drop)* [Floxin 0.3% OTIC.ASHELY (Ear Drop)] 5 drop RIGHT EAR BID #1 btl 10/13/19 [Rx] PMH/Surg Hx/FS Hx/Imm Hx Previously Healthy: Yes - Surgical History Surgical History: Yes Surgery Procedure, Year, and Place: APPENDECTOMY OVER 10 YEARS AGO. T/A A CHILD. TUBAL LIGATION- 1988, [place]. RIGHT EAR RECONSTRUCTION- ABOUT 1YEAR AGO, AT "ENT OFFICE IN [place]". plate in left forearm, surgery to right forearm for cut. - Family History Known Family History: Positive: Other - father of cancer, unknown primary; mother of stroke - Social History Alcohol Use: Rare Alcohol Amount: 1 DRINK PER MONTH, DEPENDS ON THE OCCASION Substance Use Type: None Substance Use Comment - Amount & Last Used: DRUG HISTORY MANY YEARS AGO Smoking Status (MU): Heavy Every Day Tobacco Smoker Type: Cigarettes Amount Used/How Often: 1PPD, "ALL MY LIFE" Length of Time of Smoking/Using Tobacco: 30 YEARS Have You Smoked in the Last Year: Yes Household Exposure Type: Cigarettes - Immunization History Most Recent Influenza Vaccination: unknown Most Recent Pneumonia Vaccination: n/a Review of Systems All Other Systems Reviewed And Are Negative: Yes Constitutional: Positive: Negative Skin: Positive: Other - SEE HPI Eyes: Positive: Negative ENT: Positive: Ear Ache - RT Respiratory: Positive: Negative Cardiovascular: Positive: Negative Gastrointestinal: Positive: Negative Motor: Positive: Decreased ROM Neurovascular: Positive: Negative Musculoskeletal: Positive: Other: - SEE HPI Neurological/Mental Status: Positive: Negative Psychological: Positive: Negative Is Patient Immunocompromised?: No Physical Exam Triage Information Reviewed: Yes Appearance: Well-Appearing, No Pain Distress, Well-Nourished Vital Signs: Initial Vital Signs Temp 0 F 10/13/19 14:12 Pulse 88 10/13/19 14:12 Resp 18 10/13/19 14:12 BP 146/85 10/13/19 14:12 Pulse Ox 100 10/13/19 14:12 Vital Signs Reviewed: Yes Eye Exam: Normal Eyes: Positive: Conjunctiva Clear Neck: Positive: Supple Respiratory: Positive: No respiratory distress Musculoskeletal: Positive: Other: - On the dorsum of the hand over the proximal metacarpals there is a soft tissue swelling that's mildly tender to palpation there is no erythema there is no drainage. Limits extension of the wrist. Neurological: Positive: Alert Psychological: Positive: Age Appropriate Behavior Skin: Positive: Other - There is some cracking of the skin of the fingers. Normal capillary refill normal sensation. Hand/Wrist Course/Dx - Course Course Of Treatment: He soft tissue swelling on the dorsum the hand is most consistent with a tendon related soft tissue mass. It does not appear to be infected at this time. Patient wishes to be on an antibiotic to try to make it go down farther. Patient is to follow-up with orthopedics hands for the right hand soft tissue swelling. Patient does have cracking of the fingers. Patient will follow-up with dermatology for the hand rash. Patient's right ear canal is inflamed and going to treat with ofloxacin. Patient reports that she has seen ENT in the past and for her ear she will follow-up with ENT. - Differential Dx/Diagnosis Provider Diagnosis: Swelling of right hand, Right arm pain, Rash of hands Discharge ED - Sign-Out/Discharge Documenting (check all that apply): Patient Departure All imaging exams completed and their final reports reviewed: No Studies - Discharge Plan Condition: Stable Disposition: HOME Prescriptions: Cephalexin CAP* [Keflex CAP*] 500 mg PO TID #30 cap Ofloxacin 0.3% (Ear Drop)* [Floxin 0.3% OTIC.ASHELY (Ear Drop)] 5 drop RIGHT EAR BID #1 btl Patient Education Materials: Otitis Externa (ED), Acute Rash (ED), Soft Tissue Mass (ED) Referrals: Yesenia Campbell MD [Primary Care Provider] - Tavo Shaffer MD [Medical Doctor] - Fred Baca MD [Medical Doctor] - Roseann Williamson [Medical Doctor] - Ria Veloz MD [Medical Doctor] - Additional Instructions: FOLLOW UP WITH YOUR PRIMARY CARE DOCTOR, DR SHAFFER, ORTHOPEDICS, ENT AND DERMATOLOGY. GET REEVALUATED SOONER IF NOT IMPROVED OR WORSE OR ANY QUESTIONS OR CONCERNS. - Billing Disposition and Condition Condition: STABLE Disposition: Home
== END 2019-10-13 14:56 | disposition home or self-care (01) ==
LOC: UCEAST 14:02
DX: M79.89 Other specified soft tissue disorders (principal); M79.601 Pain in right arm; R21 Rash and other nonspecific skin eruption; F17.210 Nicotine dependence, cigarettes, uncomplicated
CPT/HCPCS: 99212; G0463

== ENCOUNTER 2021-02-21 05:24 | Observation (INO) ==
[2021-02-21] MEDS ORDERED: cefTRIAXone 1 gm/50 mL NS BAG 1 GM/50 ML BAG IVPB ONE (06:12)
[2021-02-21] MEDS ORDERED: metroNIDAZOLE IV 500 MG/100ML 500 MG/100 ML BAG IVPB ONE (06:12)
[2021-02-21] MEDS ORDERED: NS 0.9% 1000 ml BAG 1,000 ML IV ONE (06:13)
[2021-02-21 07:02] LABS: ABS Basophils 0.1 10^3/ul (0-0.2); ABS Eosinophils 0.3 10^3/ul (0-0.6); ABS Lymphocytes 1.8 10^3/ul (1.0-4.8); ABS Monocytes 0.6 10^3/ul (0-0.8); ABS Neutrophils 3.9 10^3/ul (1.5-7.7); Hematocrit 32 % (35-47); Hemoglobin 11.1 g/dL (12.0-16.0); Lymphocyte % 27.3 %; Mean Corpuscular HGB Conc 35 g/dL (31-36); Mean Corpuscular Hemoglobin 32 pg (27-31); Mean Corpuscular Volume 92 fL (80-97); Mean Platelet Volume 7.2 fL (7.4-10.4); Platelet Count 361 10^3/uL (150-450); Red Blood Count 3.46 10^6 /uL (3.70-4.87); Red Cell Distribution Width 13 % (10-15); White Blood Count 6.7 10^3/uL (3.5-10.8)
[2021-02-21 07:16] LABS: Albumin 3.9 g/dL (3.2-5.2); Albumin/Globulin Ratio 1.1 (1-3); C Reactive Protein 24.07 mg/L (<8.01); Calcium 9.4 mg/dL (8.6-10.3); EGFR Non-African American 79.3 (>60); Globulin 3.5 g/dL (2-4); Potassium 3.6 mmol/L (3.5-5.0); Total Bilirubin 0.3 mg/dL (0.2-1.0); Total Protein 7.4 g/dL (6.4-8.9)
[2021-02-21] MEDS ORDERED: Naloxone 0.4 mg VIAL 0.4 mg/ml 1 ml VIAL IV PRN (13:47)
[2021-02-21] MEDS ORDERED: Ondansetron 4 mg VIAL 2 MG/ML 2 ml VIAL IV PRN ×2 (13:47→15:55)
[2021-02-21] MEDS ORDERED: fentaNYL 100 mcg/2 ml 50 MCG/ML VIAL IV PRN (13:47)
[2021-02-21] MEDS ORDERED: HYDROmorphone 1 MG/1 ML SYRINGE IV PRN (13:47)
[2021-02-21] MEDS ORDERED: Bupivacaine 0.25% EPI 200,000 30 ML SDV ONE (14:02)
[2021-02-21] MEDS ORDERED: Bacitracin INJECTION (manuf dc) 50,000 UNITS ONE (14:02)
[2021-02-21] MEDS ORDERED: Midazolam 2 mg/2 ml VIAL 1 mg/ml 2 ml VIAL (2 mg) ONE (14:18)
[2021-02-21] MEDS ORDERED: fentaNYL 100 mcg/2 ml 50 MCG/ML VIAL ONE ×2 (14:18→15:03)
[2021-02-21] MEDS ORDERED: Propofol 10 MG/ML 20 ML BTL ONE (14:18)
[2021-02-21] MEDS ORDERED: Ondansetron 4 mg VIAL 2 MG/ML 2 ml VIAL ONE (15:08)
[2021-02-21] MEDS ORDERED: Magnesium Hydroxide LIQ 30 ML UDC PO PRN (15:55)
[2021-02-21] MEDS ORDERED: Ondansetron ODT 4 mg TAB 4 MG TAB PO PRN (15:55)
[2021-02-21] MEDS ORDERED: diPHENhydraMINE 25 mg TAB PO PRN (15:55)
[2021-02-21] MEDS ORDERED: diPHENhydraMINE IV 50 MG/ML 1 ml VIAL (BENADRYL) IV PRN (15:55)
[2021-02-21] MEDS ORDERED: Lactulose 30 ml UDC PO PRN (16:04)
[2021-02-21] MEDS ORDERED: HYDROmorphone 1 MG/1 ML SYRINGE IV SLOW PU PRN (16:07)
[2021-02-21] MEDS: NS 0.9% 1000 ml BAG 1,000 ML IV SCH (17:55)
[2021-02-21] MEDS: cefTRIAXone 1 gm/50 mL NS BAG 1 GM/50 ML BAG IVPB SCH (17:55)
[2021-02-21] MEDS ORDERED: Vancomycin 1,000 MG in NS 0.9% 250 ml 250 ML IVPB ONE (19:58)
[2021-02-21] MEDS ORDERED: Vancomycin per Pharmacy 1 EA NOTE FOLLOW UP SCH (20:00)
[2021-02-21] MEDS: metroNIDAZOLE IV 500 MG/100ML 500 MG/100 ML BAG IVPB SCH (20:06)
[2021-02-21 22:57] LABS: Urine Benzodiazepine Screen Presumptive Positive (None Detect); Urine Cannabinoids Screen Presumptive Positive (None Detect); Urine Opiates Screen None Detected (None Detect)
[2021-02-22] MEDS: metroNIDAZOLE IV 500 MG/100ML 500 MG/100 ML BAG IVPB SCH ×2 (02:20→10:00)
[2021-02-22] MEDS: cefTRIAXone 1 gm/50 mL NS BAG 1 GM/50 ML BAG IVPB SCH (05:17)
[2021-02-22 06:08] LABS: ABS Basophils 0.1 10^3/ul (0-0.2); ABS Eosinophils 0.3 10^3/ul (0-0.6); ABS Lymphocytes 1.6 10^3/ul (1.0-4.8); ABS Monocytes 0.6 10^3/ul (0-0.8); ABS Neutrophils 4.8 10^3/ul (1.5-7.7); Eosinophil % 3.7 %; Hematocrit 34 % (35-47); Hemoglobin 11.5 g/dL (12.0-16.0); Lymphocyte % 21.6 %; Mean Corpuscular HGB Conc 34 g/dL (31-36); Mean Corpuscular Hemoglobin 31 pg (27-31); Mean Corpuscular Volume 94 fL (80-97); Nucleated Red Blood Cells % 0.1; Platelet Count 372 10^3/uL (150-450); Red Blood Count 3.68 10^6 /uL (3.70-4.87); Red Cell Distribution Width 13 % (10-15); White Blood Count 7.2 10^3/uL (3.5-10.8)
[2021-02-22 06:26] LABS: C Reactive Protein 16.76 mg/L (<8.01); Calcium 8.9 mg/dL (8.6-10.3); EGFR African American 114.9 (>60)
[2021-02-22] MEDS: NS 0.9% 1000 ml BAG 1,000 ML IV SCH (08:21)
[2021-02-22] MEDS ORDERED: Vancomycin 1000 MG in NS 0.9% 250 ML IVPB SCH (09:00)
[2021-02-22 11:31] VITALS: BP 136/78
[2021-02-22] MEDS ORDERED: Carbamide Peroxide 6.5% OTIC 15 ML BTL RIGHT EAR SCH (12:00)
[2021-02-22] MEDS ORDERED: Lorazepam PYXIS KEY PRN (14:17)
[2021-02-22] MEDS ORDERED: LORazepam 2 mg VIAL 1 ml IV PUSH PRN (14:17)
[2021-02-23] MEDS ORDERED: Vancomycin Trough Check NOTE FOLLOW UP ONE (08:30)
== END 2021-02-22 16:45 | disposition left against medical advice (07) ==
LOC: ED 05:24 → OR 16:59 → SSU 16:59
PROVIDERS: ADMIT Internal Medicine; ATTEND Internal Medicine
PROC: S.ORI&D (2021-02-21 14:30)

== ENCOUNTER 2023-02-12 18:44 | Observation (INO) ==
[2023-02-12 19:21] LABS: ABS Basophils 0.1 10^3/uL (0.0-0.1); ABS Lymphocytes 1.5 10^3/uL (1.0-4.8); ABS Monocytes 0.5 10^3/uL (0.0-0.9); ABS Neutrophils 2.9 10^3/uL (1.5-7.6); ABS Nucleated RBC 0.01 10^3/ul; Eosinophil % 0.6 %; Hematocrit 37.4 % (35-45); Hemoglobin 12.7 g/dL (11.5-14.3); Lymphocyte % 29.5 %; Mean Corpuscular Hemoglobin 30.2 pg (27-33); Mean Corpuscular Hgb Conc 33.9 g/dL (31-36); Mean Corpuscular Volume 89.1 fL (80-97); Mean Platelet Volume 7.2 fL (7.5-11.2); Nucleated Red Blood Cells % 0.2 /100 WBC (0.0-0.4); Platelet Count 278 10^3/uL (150-450); White Blood Count 4.9 10^3/uL (3.8-11.8)
[2023-02-12] MEDS ORDERED: Heparin DRIP 25,000 UNITS BAG 25,000 UNITS/500 ML BAG IV SCH (19:30)
[2023-02-12 19:38] LABS: Albumin 3.8 g/dL (3.2-5.2); Albumin/Globulin Ratio 1.2 (1-3); Calcium 9.4 mg/dL (8.6-10.3); Creatinine, Serum 0.9 mg/dL (0.51-0.95); Globulin 3.3 g/dL (2-4); Potassium 3.7 mmol/L (3.5-5.0); Total Bilirubin 0.4 mg/dL (0.2-1.0); Total Protein 7.1 g/dL (6.4-8.9)
[2023-02-12] MEDS: Heparin 5000 UNITS/ML 1 mL VIAL IV SCH (19:38)
[2023-02-12 19:41] LABS: Activated Partial Thrombo Time 25.8 seconds (26.0-38.0); INR 1.06 (0.88-1.18)
[2023-02-12] MEDS ORDERED: Nitro 2% OINT (Nitroglycerin) 1 INCH/PAK TOPICAL PRN (21:25)
[2023-02-12 21:51] LABS: HDL Cholesterol 79.1 mg/dL
[2023-02-12] MEDS ORDERED: Naloxone Nasal Spray 4 MG/0.1 ML NASAL.SPR INTRANASAL PRN ×2 (21:52→21:55)
[2023-02-12] MEDS ORDERED: Naloxone 0.4 mg VIAL 0.4 mg/ml 1 ml VIAL IV PUSH ONE (23:20)
[2023-02-13] MEDS ORDERED: Naloxone 0.4 mg VIAL 0.4 mg/ml 1 ml VIAL IV PUSH PRN ×2 (07:44→07:46)
[2023-02-13 07:59] LABS: ABS Basophils 0.1 10^3/uL (0.0-0.1); ABS Eosinophils 0.1 10^3/uL (0.0-0.5); ABS Lymphocytes 1.7 10^3/uL (1.0-4.8); ABS Monocytes 0.4 10^3/uL (0.0-0.9); ABS Neutrophils 1.8 10^3/uL (1.5-7.6); Eosinophil % 3.6 %; Hematocrit 36.6 % (35-45); Hemoglobin 12.4 g/dL (11.5-14.3); Lymphocyte % 41.7 %; Mean Corpuscular Hemoglobin 30.8 pg (27-33); Mean Corpuscular Hgb Conc 33.9 g/dL (31-36); Mean Corpuscular Volume 90.9 fL (80-97); Mean Platelet Volume 7.3 fL (7.5-11.2); Nucleated Red Blood Cells % 0.1 /100 WBC (0.0-0.4); Platelet Count 265 10^3/uL (150-450); Red Blood Count 4.03 10^6/uL (3.63-4.92); Red Cell Distribution Width 14.1 % (12-17); White Blood Count 4.1 10^3/uL (3.8-11.8)
[2023-02-13 08:18] LABS: Calcium 8.7 mg/dL (8.6-10.3); Creatinine, Serum 0.67 mg/dL (0.51-0.95); Potassium 3.6 mmol/L (3.5-5.0); eGFR CKD-EPI 102.5 (>60)
[2023-02-13] MEDS: Heparin 5000 UNITS/ML 1 mL VIAL IV SCH (09:08)
[2023-02-13] MEDS ORDERED: Naloxone Nasal Spray 4 MG/0.1 ML NASAL.SPR INTRANASAL PRN (09:54)
[2023-02-13] MEDS ORDERED: Nicotine PATCH 14 MG/24 HR PATCH TRANSDERM PRN (17:30)
[2023-02-14 06:21] LABS: Albumin 3.1 g/dL (3.2-5.2); Albumin/Globulin Ratio 1.1 (1-3); Calcium 8.5 mg/dL (8.6-10.3); Creatinine, Serum 0.71 mg/dL (0.51-0.95); Globulin 2.9 g/dL (2-4); Magnesium 1.9 mg/dL (1.9-2.7); Potassium 3.9 mmol/L (3.5-5.0); Total Bilirubin 0.3 mg/dL (0.2-1.0); eGFR CKD-EPI 99.7 (>60)
[2023-02-14 06:57] LABS: Urine Benzodiazepine Screen Presumptive Positive (None Detect); Urine Cannabinoids Screen None Detected (None Detect); Urine Opiates Screen None Detected (None Detect)
[2023-02-14] MEDS ORDERED: Potassium Chlor 10 meq TAB PO ONE (07:51)
[2023-02-14 11:55] VITALS: BP 140/79
[2023-02-14 12:29] LABS: Hepatitis B Surface Ab Not Immune (Immune)
[2023-02-14 12:58] LABS: Hepatitis C Antibody Reactive (Negative)
[2023-02-14 13:42] LABS: Hepatitis B Surface Antigen Nonreactive (Nonreactive)
[2023-02-14] MEDS ORDERED: Regadenoson 0.4 MG/5 ML SYRINGE ONE (15:28)
== END 2023-02-14 13:40 | disposition home or self-care (01) ==
LOC: EDHOLD 18:44 → ED 18:44 → SUATTDRO 20:55 → EDHOLD 02-13 00:12 → MEDTELE 02-13 00:58
PROVIDERS: ADMIT Hospitalist; ATTEND Internal Medicine